=== PATIENT | female | born 1945 | race Caucasian/White ===

== ENCOUNTER 2021-08-04 19:18 | Inpatient (IN) | payer MEDICARE, BC, SELFPAY ==
--- NOTE | 2021-08-04 19:22 | ECG_ITS ---
[facility] Test Date: 2021-08-04 Pat Name: Marilou Leiva Department: Room: 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: : 1945 Requested By: Wendi Bernardo Order Number: [id number] Reading MD: ERICH FREEMAN Measurements Intervals [place] Rate: 64 P: PA: QRS: 52 QRSD: 100 T: 59 QT: 410 QTc: 425 Interpretive Statements ATRIAL FIBRILLATION INCOMPLETE RIGHT BUNDLE BRANCH BLOCK [90+ ms QRS DURATION, TERMINAL R IN V1/V2, 40+ ms S IN I/aVL/V4/V5/V6] NONSPECIFIC ST & T-WAVE ABNORMALITY ABNORMAL RHYTHM ECG No previous ECG available for comparison Electronically Signed On 08-05-2021 21:57:38 CDT by ERICH FREEMAN [email or web address]/store/NU/[id number] f
[2021-08-04 19:26] VITALS: BP 182/83; PULSE 64; RESP 16; TEMP 36.6; O2SAT 99; BMI 33.4
--- NOTE | 2021-08-04 20:32 | W.ED.CHESTPA ---
HPI - Chest Pain General: Chief Complaint: Chest Pain Stated Complaint: Chest Pains\Weakness Time Seen by Provider: 08/04/21 20:32 History of Present Illness: HPI narrative: Ms. Leiva is a 75-year-old lady with significant past medical history of high cholesterol and hemolytic anemia who presents emergency department due to chest discomfort. She reports a few week history of gradual onset now moderate intensity shortness of breath and fatigue. There is no specific preceding event. No typical infectious symptoms associated with it. During exertion today she noticed pressure in the middle of the chest without significant radiation. She felt flushed at that time and generalized malaise however no other typical cardiac chest pain features. This lasted approximately 30 minutes and resolved with rest. Intensity was moderate. Denies frequent history of similar. No other specific exacerbating relieving factors identified. She has been told that she is had an irregular heart rate, is not on blood thinners, previous evaluation was greater than 4 years ago approximately. 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 Recommended to have yearly CBC, retic, LDH, CMP Depression 1 para 1 History of stress test (11/2018) normal myocardia perfusion imaging, EF 66% Hyperlipidemia Surgical History (Updated 08/05/21 @ 02:01 by Aleida Zhao MD) History of tubal ligation Family History (Updated 08/05/21 @ 02:01 by Aleida Zhao MD) Father CAD (coronary artery disease) Social History (Updated 08/05/21 @ 02:02 by Aleida Zhao MD) Smoking and tobacco status: never smoked Alcohol intake: never Lives independently: Yes Household members: spouse Marital status: Number of children: 1 Physical Exam Narrative: EXAM NARRATIVE: GENERAL/CONSTITUTIONAL - well-appearing. No acute distress. Eyes - PERRL, no conjunctival injection ENMT - Atraumatic external nose and ears. Moist mucous membranes NECK - supple. trachea midline CARDIOVASCULAR -irregular rhythm and regular rate. Peripheral pulses intact. Chest pain not reproducible with physical exam. RESPIRATORY -clear to auscultation bilaterally. ABDOMEN/GI - Nontender/Nondistended. No tenderness to percussion or evidence of peritonitis MSK - Extremities without obvious deformity or tenderness to palpation SKIN - Warm, Dry NEURO - alert and appropriately oriented. strength and sensation intact. Moves all extremities equally. PSYCH - Appropriate mood and affect Course ED course: - Patient was seen and evaluated by me at bedside - Patient placed on cardiac monitors, IV access obtained - Initial evaluation notable for no acute distress, nontoxic appearance. - Labs notable for mild leukocytosis, macrocytic anemia. Troponin elevated with elevated delta troponin. Aspirin and Lovenox ordered - Imaging notable for no lobar consolidation or pneumothorax - Upon serial reexamination after treatment the patient was similar without recurrence of chest pain - Based on patient history, evaluation, labs, and imaging as interpreted the most likely cause of the patient's condition is NSTEMI, atrial fibrillation not on anticoagulation - The results of ED evaluation were discussed with the patient including plan for admission due to requirement for level of care not available if discharged to prevent significant worsening/deterioration. -Hospitalist service contacted and agreed admit the patient - Patient was admitted without further deterioration or significant events. Vital Signs: Vital signs: Vital Signs Temperature 98.7 F 08/07/21 12:59 Pulse Rate 80 08/07/21 14:00 Respiratory Rate 32 H 08/07/21 14:00 Blood Pressure 152/68 08/07/21 14:00 Pulse Oximetry 96 08/07/21 14:00 MDM - Chest Pain Medical Records: Attestation: I reviewed the patient's medical records. Lab Data: Attestation: I reviewed the patient's lab results. Labs: Lab Results 08/04/21 08/04/21 08/04/21 21:16 21:16 21:16 WBC 12.2 10^3/uL H 10 ^3/uL (4.0-10.0) RBC 3.58 10^6/uL L 10 ^6/uL (4.1-5.3) Hgb 10.7 g/dL L g/dL (11.5-15.3) Hct 35.7 % L % (37.0-47.0) MCV 99.7 fl H fl (81-99) MCH 29.9 pg pg (28.0-34.0) MCHC 30.0 g/dL g/dL (30.0-36.0) RDW 15.4 % H % (12.1-15.1) Plt Count 171 10^3/cmm 10^3 /cmm (130-400) MPV 11.0 fL H fL (7.4-10.4) Neut % (Auto) 67.7 % % Lymph % (Auto) 24.3 % % [place] % (Auto) 5.1 % % Eos % (Auto) 1.4 % % Baso % (Auto) 0.9 % % Neut # (Auto) 8.28 10^3/uL H 10 ^3/uL (1.8-7.7) Lymph # (Auto) 3.0 10^3/uL 10^3/ uL (0.8-4.8) [place] # (Auto) 0.6 10^3/uL 10^3/ uL (0.2-0.9) Eos # (Auto) 0.2 10^3/uL 10^3/ uL (0.0-0.8) Baso # (Auto) 0.1 10^3/uL 10^3/ uL (0.0-0.1) Nucleated RBC % (a uto) 0 % % Nucleated RBCs # 0.0 /100WBC /100W BC Sodium 142 mmol/L mmol/L (136-145) Potassium 3.8 mmol/L mmol/L (3.5-5.1) Chloride 106 mmol/L mmol/L (98-107) Carbon Dioxide 25 mmol/L mmol/L (22-29) Anion Gap 14.8 (5-19) BUN 16 mg/dL mg/dL (8-23) Creatinine 0.7 mg/dL mg/dL (0.5-0.9) GFR Calculation Not Reportable Glucose 99 mg/dL mg/dL (65-115) Calculated Osmolal ity 295 mOsm/kg mOsm/ kg (285-295) Calcium 8.9 mg/dL mg/dL (8.5-10.5) Total Bilirubin 0.6 mg/dL mg/dL (0.15-1.2) AST 18 U/L U/L (0-32) ALT 13 U/L U/L (0-33) Alkaline Phosphata se 131 IU/L H IU/L (35-105) Troponin T Baselin e 106 ng/L H* ng/L (0-10) Troponin T 120 Min [place] Delta Troponin T Total Protein 5.7 g/dL L g/dL (6.6-8.7) Albumin 4.0 g/dL g/dL (3.5-5.2) Globulin 1.7 g/dL g/dL (1.3-4.6) TSH 4.65 uIU/mL H uIU /mL (0.27-4.20) Free T4 08/04/21 08/04/21 21:16 22:44 WBC RBC Hgb Hct MCV MCH MCHC RDW Plt Count MPV Neut % (Auto) Lymph % (Auto) [place] % (Auto) Eos % (Auto) Baso % (Auto) Neut # (Auto) Lymph # (Auto) [place] # (Auto) Eos # (Auto) Baso # (Auto) Nucleated RBC % (a uto) Nucleated RBCs # Sodium Potassium Chloride Carbon Dioxide Anion Gap BUN Creatinine GFR Calculation Glucose Calculated Osmolal ity Calcium Total Bilirubin AST ALT Alkaline Phosphata se Troponin T Baselin e Troponin T 120 Min [place] 169.9 ng/L H ng/L (0-10) Delta Troponin T 63.9 ABS# H* ABS# (0-10) Total Protein Albumin Globulin TSH Free T4 1.00 ng/dL ng/dL (0.82-1.77) EKG Data^: EKG 1: Attestation: I personally reviewed and interpreted this EKG as follows: EKG interpretation date: 08/04/21 EKG interpretation time: 19:28 Interpretation: Twelve-lead EKG shows an irregular rhythm at a rate of 64. No DC interval, QRS duration 100, QTc 425. Normal axis. Interpretation: Atrial fibrillation. EKG 2: Attestation: I personally reviewed and interpreted this EKG as follows: EKG interpretation date: 08/04/21 EKG interpretation time: 21:41 Interpretation: Twelve-lead EKG shows an irregular rhythm at a rate of 68. No DC interval, QRS duration 110, QTc 445. Normal axis. Interpretation: Atrial fibrillation Discharge Plan Discharge Patient Disposition: Placed in Observation Admit Provider: Aleida Zhao Discharge Diet: Cardiac Discharge Activity: Increase activity as tolerated Coding Level of Care Code ED Solar Sales Energy Advisor for Tiera Merino
--- NOTE | 2021-08-04 20:42 | XRR_ITS ---
PROCEDURE INFORMATION: Exam: XR Chest Exam date and time: 08/04/2021 8:42 PM Age: 75 years old Clinical indication: Pain; Chest pressure; Additional info: Chest pain TECHNIQUE: Imaging protocol: XR of the chest. Views: 1 view. Total images: 1 COMPARISON: No relevant prior studies available. FINDINGS: Lungs: No visible active interstitial or alveolar airspace disease. Pleural spaces: Unremarkable. No pleural effusion. No pneumothorax. Heart/Mediastinum: Cardiac structures and configuration within normal limits. Bones/joints: Unremarkable. XR/XR chest 1V portable [id number] IMPRESSION: Nonacute. Radiation Dose CTDIVOL = (mGy): DLP = (mGy-cm)
[2021-08-04] MEDS: aspirin 81 mg Chew Tablet 324 MG PO (20:51)
[2021-08-04 21:22] LABS: Basophils # 0.1 10^3/uL (0.0-0.1); Basophils % 0.9 %; Eosinophils # 0.2 10^3/uL (0.0-0.8); Eosinophils % 1.4 %; Hematocrit 35.7 % (37.0-47.0); Hemoglobin 10.7 g/dL (11.5-15.3); Lymphocytes % 24.3 %; Mean Corpuscular Hemoglobin 29.9 pg (28.0-34.0); Mean Corpuscular Volume 99.7 fl (81-99); Monocytes # 0.6 10^3/uL (0.2-0.9); Monocytes % 5.1 %; Neutrophils # 8.28 10^3/uL (1.8-7.7); Neutrophils % 67.7 %; Nucleated Red Blood Cells % 0 %; Platelet Count 171 10^3/cmm (130-400); Red Blood Count 3.58 10^6/uL (4.1-5.3); Red Cell Distribution Width 15.4 % (12.1-15.1); White Blood Count 12.2 10^3/uL (4.0-10.0)
--- NOTE | 2021-08-04 21:22 | ECG_ITS ---
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 Pharmaceuticalsselect medical [facility]vel[facility].Sanera/store/OM/[id number]
[2021-08-04 21:46] LABS: Troponin(5th) Baseline 106 ng/L (0-10)
[2021-08-04 21:47] LABS: Alanine Aminotransferase 13 U/L (0-33); Alkaline Phosphatase 131 IU/L (35-105); Anion Gap 14.8 (5-19); Aspartate Amino Transferase 18 U/L (0-32); Blood Urea Nitrogen 16 mg/dL (8-23); Calcium 8.9 mg/dL (8.5-10.5); Carbon Dioxide 25 mmol/L (22-29); Chloride 106 mmol/L (98-107); Creatinine Clr Calc Pharmacy 77.3729; Globulin 1.7 g/dL (1.3-4.6); Glucose 99 mg/dL (65-115); Osmolality Calculated 295 mOsm/kg (285-295); Potassium 3.8 mmol/L (3.5-5.1); Sodium 142 mmol/L (136-145); Thyroid Stimulating Hormone 4.65 uIU/mL (0.27-4.20); Total Bilirubin 0.6 mg/dL (0.15-1.2); Total Protein 5.7 g/dL (6.6-8.7)
[2021-08-04] MEDS: enoxaparin 100 mg/mL Syringe SUBCUT (23:16)
[2021-08-04 23:26] LABS: Troponin 5 2HR 169.9 ng/L (0-10); Troponin 5 2HR Delta 63.9 ABS# (0-10)
[2021-08-04 23:45] VITALS: BP 210/93; PULSE 70; RESP 18; O2SAT 99
--- NOTE | 2021-08-04 23:45 | PC.NURSE ---
PT CONTINUES TO DENY PAIN, RESPIRATIONS EVEN,NON-LABORED. DENIES N/V. SKIN P/W/D.
[2021-08-04] MEDS: hyDRALAzine 20 mg/mL INJ 1 mL 10 MG IVP (23:49)
[2021-08-05] VITALS (174 sets, daily range): BP systolic 112–210; BP diastolic 49–102; PULSE 52–84; RESP 8–34; TEMP 36.3–37.1; O2SAT 92–99
--- NOTE | 2021-08-05 01:22 | ECG_ITS ---
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: : 1945 Requested By: Wendi Bernardo Order Number: [id number] Reading MD: ERICH FREEMAN Measurements Intervals [place] Rate: 62 P: 58 [place]: 131 QRS: 33 QRSD: 106 T: 42 QT: 453 QTc: 462 Interpretive Statements SINUS RHYTHM WITH OCCASIONAL VENTRICULAR PREMATURE COMPLEXES INCOMPLETE RIGHT BUNDLE BRANCH BLOCK [90+ ms QRS DURATION, TERMINAL R IN V1/V2, 40+ ms S IN I/aVL/V4/V5/V6] Compared to ECG 08/04/2021 21:34:00 Ventricular premature complex(es) now present ST (T wave) deviation no longer present Electronically Signed On 08-05-2021 21:59:33 CDT by ERICH FREEMAN [email or web address] Environment EngineeringHeartscapeeast oh[facility] regional hospital.Andela/store/OM/[id number]
--- NOTE | 2021-08-05 01:27 | P.HP_ITS ---
Providers/Chief Complaint Admitting Physician: Aleida Zhao MD Primary Care Provider: Has been Lukas Caldwell, in the process of transitioning to Dr. Anthony Chief Complaint: Chest Pains\Weakness History of Present Illness Marilou Leiav is a 75 year old female who presented to the emergency room with chief complaint of chest pain. Over the last few weeks she has been excessively tired and progressively more short of breath with exertion. She has had episodes of some diaphoresis associated with it and intermittent mild chest pain. She had scheduled an appointment to see Dr. Anthony this coming Thursday to get her blood work checked. She has a history of autoimmune hemolytic anemia for which she is on chronic folate therapy and thought that her blood counts might be low. Today she had a couple of episodes of which there was a hurting or a pressure in the center of her chest. There was no radiation. Associated with shortness of breath and mild diaphoresis and lasted more than 30 minutes. It improved with rest. It was severe enough that prompted the visit to the emergency room. In the emergency room she was noted to have blood pressure 182/83 and a pulse of 64. Twelve-lead EKG showed nonspecific ST depression and also demonstrated atrial fibrillation. Initial troponin was 100. 2-hour delta was 60. She has remained chest pain-free at rest. She is being admitted for further evaluation and treatment. Review of Systems Const: Reports: fatigue and malaise; Denies: fever(s), chills or change in weight ENMT: Denies: nasal congestion Card: Reports: chest pain, palpitations, swelling of feet/ankles (Occasionall y) and dyspnea on exertion; Denies: orthopnea Resp: Denies: productive cough, non-productive cough or pain on inspiration GI: Denies: abdominal pain, nausea, vomiting, hematochezia or melena : Denies: difficulty voiding or hematuria Musc: Denies: extremity pain Skin/Breast: Denies: sores Neuro: Denies: headache(s), weakness in extremities, sensory changes or dizziness Psych: Reports: depression Chad/Lymph: Denies: easy bruising or easy bleeding Medications/Allergies Home Medications Medication Instructions Recorded Confirmed Last Taken Type aspirin 81 mg PO DAILY 08/05/21 08/05/21 08/04/21 History fluoxetine 20 mg PO DAILY 08/05/21 08/05/21 08/04/21 History folic acid 1 mg PO DAILY 08/05/21 08/05/21 08/04/21 History lovastatin 20 mg PO DAILY 08/05/21 08/05/21 08/03/21 History magnesium citrate 100 mg PO DAILY 08/05/21 08/05/21 08/04/21 History vitamins A,C,Y-dxux-aggkur [Eye 1 tab PO DAILY 08/05/21 08/05/21 08/04/21 History Multivitamin] Allergies Allergy/AdvReac Type Severity Reaction Status Date / Time Tetracyclines Allergy Unknown Verified 08/04/21 19:30 PFSH Acute PFSH: Medical History (Updated 08/05/21 @ 02:04 by Aleida Zhao MD) Arrhythmia (~2011) Paroxysmal, likely atrial fibrillation, identified on eval for possible kidney donor, then not captured again, not been on rate control agents, other treatment or anticoagulation 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 Recommended to have yearly CBC, retic, LDH, CMP Depression 1 para 1 History of stress test (11/2018) normal myocardia perfusion imaging, EF 66% Hyperlipidemia Surgical History (Updated 08/05/21 @ 02:01 by Aleida Zhao MD) History of tubal ligation Family History (Updated 08/05/21 @ 02:01 by Aleida Zhao MD) Father CAD (coronary artery disease) Social History (Updated 08/05/21 @ 02:02 by Aleida Zhao MD) Smoking and tobacco status: never smoked Alcohol intake: never Substance/Drug Use: never Lives independently: Yes Household members: spouse Marital status: Number of children: 1 Vitals/I&O/Wt Last Vital Signs Temp 97.8 F 08/04/21 19:26 Pulse 69 08/05/21 00:30 Resp 18 08/05/21 00:30 BP 149/99 08/05/21 00:30 Pulse Ox 99 08/05/21 00:30 Weight last 48 hrs Weight 99.79 kg Physical Exam Narrative: EXAM NARRATIVE: Constitutional: Awake and alert, cooperative HEENT: Normocephalic, atraumatic, pupils are equally reactive, nasopharynx is clear, oropharynx with moist mucous membranes Neck: Supple Respiratory: Clear to auscultation bilaterally without any rales or wheezes noted Cardiovascular: Irregularly irregular rhythm without any murmurs gallops or rubs Abdomen: Soft, nontender, nondistended with positive bowel sounds : Deferred Extremities: No pitting edema or acute synovitis Skin: Dry, no acute rashes or bruises noted Neuro: Speech clear, face symmetric, moves all extremities Psych: Normal affect, oriented x3 Data : 08/04/21 21:16 08/04/21 21:16 Other Labs: Laboratory Results WBC 12.2 10^3/uL (4.0-10.0) H 08/04/21 21:16 RBC 3.58 10^6/uL (4.1-5.3) L 08/04/21 21:16 Hgb 10.7 g/dL (11.5-15.3) L 08/04/21 21:16 Hct 35.7 % (37.0-47.0) L 08/04/21 21:16 MCV 99.7 fl (81-99) H 08/04/21 21:16 MCH 29.9 pg (28.0-34.0) 08/04/21 21:16 MCHC 30.0 g/dL (30.0-36.0) 08/04/21 21:16 RDW 15.4 % (12.1-15.1) H 08/04/21 21:16 Plt Count 171 10^3/cmm (130-400) 08/04/21 21:16 MPV 11.0 fL (7.4-10.4) H 08/04/21 21:16 Neut % (Auto) 67.7 % 08/04/21 21:16 Lymph % (Auto) 24.3 % 08/04/21 21:16 [place] % (Auto) 5.1 % 08/04/21 21:16 Eos % (Auto) 1.4 % 08/04/21 21:16 Baso % (Auto) 0.9 % 08/04/21 21:16 Neut # (Auto) 8.28 10^3/uL (1.8-7.7) H 08/04/21 21:16 Lymph # (Auto) 3.0 10^3/uL (0.8-4.8) 08/04/21 21:16 [place] # (Auto) 0.6 10^3/uL (0.2-0.9) 08/04/21 21:16 Eos # (Auto) 0.2 10^3/uL (0.0-0.8) 08/04/21 21:16 Baso # (Auto) 0.1 10^3/uL (0.0-0.1) 08/04/21 21:16 Nucleated RBC % (auto) 0 % 08/04/21 21:16 Nucleated RBCs # 0.0 /100WBC 08/04/21 21:16 Sodium 142 mmol/L (136-145) 08/04/21 21:16 Potassium 3.8 mmol/L (3.5-5.1) 08/04/21 21:16 Chloride 106 mmol/L (98-107) 08/04/21 21:16 Carbon Dioxide 25 mmol/L (22-29) 08/04/21 21:16 Anion Gap 14.8 (5-19) 08/04/21 21:16 BUN 16 mg/dL (8-23) 08/04/21 21:16 Creatinine 0.7 mg/dL (0.5-0.9) 08/04/21 21:16 GFR Calculation Not Reportable 08/04/21 21:16 Glucose 99 mg/dL (65-115) 08/04/21 21:16 Calculated Osmolality 295 mOsm/kg (285-295) 08/04/21 21:16 Calcium 8.9 mg/dL (8.5-10.5) 08/04/21 21:16 Total Bilirubin 0.6 mg/dL (0.15-1.2) 08/04/21 21:16 AST 18 U/L (0-32) 08/04/21 21:16 ALT 13 U/L (0-33) 08/04/21 21:16 Alkaline Phosphatase 131 IU/L (35-105) H 08/04/21 21:16 Troponin T Baseline 106 ng/L (0-10) H* 08/04/21 21:16 Troponin T 120 Minute 169.9 ng/L (0-10) H 08/04/21 22:44 Delta Troponin T 63.9 ABS# (0-10) H* 08/04/21 22:44 Total Protein 5.7 g/dL (6.6-8.7) L 08/04/21 21:16 Albumin 4.0 g/dL (3.5-5.2) 08/04/21 21:16 Globulin 1.7 g/dL (1.3-4.6) 08/04/21 21:16 TSH 4.65 uIU/mL (0.27-4.20) H 08/04/21 21:16 Free T4 1.00 ng/dL (0.82-1.77) 08/04/21 21:16 Impressions Chest X-Ray 08/04/21 20:42 IMPRESSION: Nonacute. Radiation Dose CTDIVOL = (mGy): DLP = (mGy-cm) A&P Assessment and plan (1) NSTEMI (non-ST elevated myocardial infarction): With somewhat classic symptoms of unstable angina over the last couple of weeks as described Status: Acute (2) Hypertension: With hypertensive urgency presently, no prior history of hypertension Status: Acute (3) Atrial fibrillation: Sounds like she has had an arrhythmia identified in the past, likely atrial fibrillation but upon follow-up with physicians after it was identified she had sinus rhythm. Review of records here demonstrates sinus rhythm when she had stress test although was having frequent PACs. She has never been any specific treatment for atrial fibrillation nor on any anticoagulation. Status: Acute (4) Hyperlipidemia: Type unknown, chronically on statin therapy Status: Chronic (5) Autoimmune hemolytic anemia: This was identified during an evaluation to see if she could be a kidney donor for her . She has Joseluis positive warm reacting IgG antibody associated with mild anemia. She is chronically on folate supplementation. Has seen Dr. De La Cruz in the past Status: Chronic (6) Depression: Chronically on fluoxetine, currently well controlled Status: Chronic Additional A&P Information Inpatient admission Continue serial cardiac enzymes Status post 1 dose of Lovenox, will continue but need to monitor response Aspirin, statin, Plavix, beta-blockade Nitropaste presently, will consider nitroglycerin drip if pressures do not respond to treatment Check lipid panel and BNP Echocardiogram Cardiology consultation Check reticulocyte, coagulation studies and LDH as well as repeat CBC If evidence of increased hemolysis, will eval for steroids or other treatment op tions Can discuss with hematology later today to facilitate management in setting of NSTEMI and afib and potential need for anti-platelet as well as anticoagulant treatment PPI for GI prophylaxis SCDs for DVT prophylaxis N.p.o. for possible intervention later today Low volume IV fluids while n.p.o. Supportive care otherwise Plans, findings and concerns discussed with patient and she was given an o pportunity to ask questions Anticipate discharge home once medically stable with outpatient cardiology plus or minus hematology follow-up Full code Attestations Medical Necessity Statement*: Anticipated stay greater than 2 midnights in a patient with unstable angina non-ST elevation IA along with known autoimmune hemolytic anemia. At high risk of rapid clinical decline without close monitoring and initiation of treatment plus possible intervention. Plans are as indicated. Coding Level of Care Code Acute Finishing Technician for zeyad Guerrad Diagnoses NSTEMI (non-ST elevated myocardial infarction) I21.4 Hypertension I10 Atrial fibrillation I48.91 Hyperlipidemia E78.5 Autoimmune hemolytic anemia D59.10 Depression F32.A
[2021-08-05] MEDS: sodium chlor 0.45% +KCl 20 mEq 20 MEQ/1,000 ML BAG 75 MEQ IV (01:48)
[2021-08-05] MEDS: atorvastatin 40 mg Tablet PO ×2 (01:48→20:07)
[2021-08-05] MEDS: metoprolol tartrate 1 mg/1 mL SDV 5 mL 5 MG IVP (01:48)
[2021-08-05] MEDS: nitroglycerin 1 gm/inch oint Pkt 1 INCH TOPICAL (01:48)
--- NOTE | 2021-08-05 02:04 | USCV_ITS ---
Marilou Leiva Age: 75 Gender: F : 1945 Exam Date: 08/05/2021 06:43 Ordering Phys: Aleida Zhao MD Technologist: Exam Location: [facility] [place] Indication: NSTEMI BP: 163 / 72 HR: 61 Rhythm: Sinus Technical Quality: Adequate MEASUREMENTS (Male / Female) Normal Values 2D ECHO LV Diastolic Diameter PLAX 5.1 cm 4.2 - 5.9 / 3.9 - 5.3 cm LV Systolic Diameter PLAX 3.1 cm IVS Diastolic Thickness 1.2 cm 0.6 - 1.0 / 0.6 - 0.9 cm IVS Systolic Thickness 2.0 cm LVPW Diastolic Thickness 1.2 cm 0.6 - 1.0 / 0.6 - 0.9 cm LVPW Systolic Thickness 1.5 cm LVOT Diameter 2.0 cm LV Ejection Fraction 2D Teich 69.6 % LV Ejection Fraction MOD 2C 56.9 % LV Ejection Fraction 2C AL 57.1 % LA Diameter 3.7 cm LA Width 3.5 cm LA Height 5.7 cm RA Width 3.4 cm RA Height 4.9 cm Aorta at Sinotubular Diameter 2.9 cm DOPPLER AV Peak Velocity 119.0 cm/s LVOT Peak Velocity 96.0 cm/s AV Area Cont Eq vti 2.3 cm squared AV Area Cont Eq pk 2.5 cm squared MV Area PHT 5.0 cm squared Mitral E to A Ratio 1.3 MV E' Velocity 54.5 cm/s Mitral E to MV E' Ratio 9.2 Mitral E to LV E' Lateral Ratio 9.5 Mitral E to LV E' Septal Ratio 9.0 TR Peak Velocity 286.0 cm/s TR Peak Gradient 32.7 mmHg TV Peak E Velocity 91.0 cm/s Right Atrial Pressure 3.0 mmHg Pulmonary Artery Systolic Pressu 35.7 mmHg FINDINGS Left Ventricle Normal left ventricular size, systolic function and mildly increased wall thickness, with no regional wall motion abnormalities. Left ventricular ejection fraction is estimated at 60-65 %. Normal diastolic function. Right Ventricle Normal right ventricular size and systolic function. Right ventricular systolic pressure 35.7 mmHg. Right Atrium Normal right atrial size. Right atrial pressure estimated at 3 mmHg. Left Atrium Normal left atrial size. Mitral Valve Structurally normal mitral valve. No mitral valve stenosis. Trace mitral valve regurgitation. Aortic Valve Structurally normal trileaflet aortic valve. No aortic valve stenosis. No aortic valve regurgitation. Tricuspid Valve Structurally normal tricuspid valve. Bmgv-do-lvczodmo tricuspid valve regurgitation. Pulmonic Valve Structurally normal pulmonic valve. No pulmonary valve stenosis. No pulmonary valve regurgitation. Pericardium No pericardial effusion. Aorta Normal-sized inferior vena cava. Normal-sized aortic root. CONCLUSIONS 1. Normal left ventricular size, systolic function and mildly increased wall thickness, with no regional wall motion abnormalities. Left ventricular ejection fraction is estimated at 60-65 %. Normal diastolic function. 2. Normal right ventricular size and systolic function. 3. Mild pulmonary hypertension with pulmonary artery pressure estimated at 36 mmHg. 4. Wksu-vq-xoagajrl tricuspid valve regurgitation. 5. No prior similar studies to compare. Jacqueline Alcantara MD (Electronically Signed) Final Date: 05 August 2021 14:42 S
[2021-08-05] MEDS: nitroglycerin drip 50 MG/250 ML PREMIX IV (02:21)
--- NOTE | 2021-08-05 02:32 | PC.NURSE ---
Patients BP continues to remain elevated above [address] Zhao on unit and gave orders to discontinue the nitro paste and start a nitro drip. Continue care.
[2021-08-05 03:37] LABS: Basophils # 0.1 10^3/uL (0.0-0.1); Eosinophils # 0.1 10^3/uL (0.0-0.8); Eosinophils % 1.2 %; Hematocrit 37.1 % (37.0-47.0); Hemoglobin 10.9 g/dL (11.5-15.3); Lymphocytes # 2.7 10^3/uL (0.8-4.8); Lymphocytes % 25.2 %; Mean Corpuscular HGB Conc 29.4 g/dL (30.0-36.0); Mean Corpuscular Hemoglobin 29.8 pg (28.0-34.0); Mean Corpuscular Volume 101.4 fl (81-99); Mean Platelet Volume 11.2 fL (7.4-10.4); Monocytes # 0.5 10^3/uL (0.2-0.9); Monocytes % 5.1 %; Neutrophils # 7.07 10^3/uL (1.8-7.7); Nucleated Red Blood Cells % 0 %; Platelet Count 159 10^3/cmm (130-400); Red Blood Count 3.66 10^6/uL (4.1-5.3); Red Cell Distribution Width 15.3 % (12.1-15.1); Reticulocyte % 5.9 % (0.5-2.0); White Blood Count 10.6 10^3/uL (4.0-10.0)
[2021-08-05 03:56] LABS: INR 1.05 (0.8-1.2)
[2021-08-05 03:57] LABS: Partial Thromboplastin Time 32.5 SECONDS (23.9-36.7); Troponin 5 6HR 155.5 ng/L (0-10); Troponin 5 6HR Delta 49.5 ng/L (0-12)
[2021-08-05 04:29] LABS: Anion Gap 15.5 (5-19); Blood Urea Nitrogen 14 mg/dL (8-23); Carbon Dioxide 24 mmol/L (22-29); Chloride 106 mmol/L (98-107); Cholesterol 177 mg/dL (0-200); Creatinine Clr Calc Pharmacy 77.3729; Glucose 99 mg/dL (65-115); HDL Cholesterol 61 mg/dL (60-100); LDL Cholesterol Calculated 103 mg/dL (50-129); LDL HDL Ratio 1.69 RATIO (0.00-3.22); Lactate Dehydrogenase 268 U/L (135-214); NT Pro B Type Natriuretic Pept 757 pg/mL (0-125); Osmolality Calculated 295 mOsm/kg (285-295); Potassium 3.5 mmol/L (3.5-5.1); Sodium 142 mmol/L (136-145); Triglycerides 67 mg/dL (0-150)
--- NOTE | 2021-08-05 06:09 | PC.NURSE ---
Shift Note Frequent safety and comfort rounds continue. Pt had to be started on a nitroglycerin drip due to SBP>200. Dr. Zhao wants systolic pressure between 140-150. No pain reported from patient. Orders and nursing care completed as indicated. Patient monitored for response to intervention and treatment. Education provided includes use of nitroglycerin. Patient verbalized understanding. Will continue care.
--- NOTE | 2021-08-05 07:56 | PC.NURSE ---
Shift Note Frequent safety and comfort rounds continue. Orders and/or nursing care completed as indicated. Patient monitored for response to intervention and treatment(s). Education provided includes[blood pressure monitoring, nitroglycerin gtt, chest pain with pain management.]. Patient and/or customer development representative [pt verbally states she understands]. Will continue to monitor. Received bed side shift report from off going nurse. Pt's plan of care reviewed. Pt is alert and oriented and able to make her own decisions. Respirations are even and unlabored. No s/sx of distress noted. Pt denies any pains or concerns at this time. Pt stated that her own complaint is that she wasnt able to get any sleep through the night. Bed in lowest and locked position, call light within reach, x's 2 rails up. Will continue to monitor.
--- NOTE | 2021-08-05 07:58 | PM.PN ---
Subjective Subjective: Interval history: Marilou reports she has no chest discomfort this morning. History and physical was reviewed. Medications: Reviewed: Yes Vitals/I&O/Wt Last Vital Signs Temp 98.0 F 08/05/21 04:00 Pulse 66 08/05/21 06:00 Resp 16 08/05/21 06:00 BP 145/68 08/05/21 06:00 Pulse Ox 96 08/05/21 06:00 08/04/21 08/05/21 08/05/21 22:59 06:59 14:59 Intake Total 3.35 / 3.35 Balance 3.35 / 3.35 Weight last 48 hrs Weight 99.79 kg Physical Exam Narrative: EXAM NARRATIVE: General exam no apparent distress Neck is supple Cardiovascular regular rate and rhythm without murmur Lungs clear Abdomen is soft with positive bowel sounds Extremities no cyanosis clubbing or edema Data : 08/05/21 03:10 08/05/21 03:10 A&P Assessment and plan (1) NSTEMI (non-ST elevated myocardial infarction): Significant troponin delta Beta-kaya, statin, aspirin, nitrates, full dose anticoagulation, Plavix Cardiology consultation Echocardiogram ordered, result pending Status: Acute (2) Hypertension: With hypertensive urgency on admission, now improved Status: Acute (3) Atrial fibrillation: Sounds like she has had an arrhythmia identified in the past, likely atrial fibrillation but upon follow-up with physicians after it was identified she had sinus rhythm. Review of records here demonstrates sinus rhythm when she had stress test although was having frequent PACs. She has never been any specific treatment for atrial fibrillation nor on any anticoagulation. Repeat EKG, may be sinus rhythm currently. 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 She has Joseluis positive warm reacting IgG antibody associated with mild anemia. She is chronically on folate supplementation. Has seen Dr. De La Cruz in the past Continue to follow CBCs closely Status: Chronic (6) Depression: Continue fluoxetine Status: Chronic Additional A&P Information Protonix for GI prophylaxis Lovenox will suffice for DVT prophylaxis Attestations Medical Necessity Statement*: Needs continued hospitalization for cardiac evaluation secondary to non-ST elevation myocardial infarction. Coding Level of Care Code Acute Broadcast Operations Director for Chg Fwd Diagnoses NSTEMI (non-ST elevated myocardial infarction) I21.4 Hypertension I10 Atrial fibrillation I48.91 Hyperlipidemia E78.5 Autoimmune hemolytic anemia D59.10 Depression F32.A
[2021-08-05] MEDS: aspirin 81 mg EC Tablet PO (08:33)
[2021-08-05] MEDS: metoprolol tartrate 25 mg Tablet PO ×2 (08:33→20:07)
[2021-08-05] MEDS: fluoxetine 20 mg Capsule PO (08:33)
[2021-08-05] MEDS: folic acid 1 mg Tablet PO (08:33)
[2021-08-05] MEDS: clopidogrel 75 mg Tablet PO (08:34)
[2021-08-05] MEDS: pantoprazole DR 40 mg Tablet PO (08:34)
--- NOTE | 2021-08-05 09:10 | PC.CHAP ---
Pastoral Care Encounter/Spiritual Assessment Type of Contact [] Declined color strainer visit [] Patient/Family/Request visit [] Outpatient visit [] Follow-up visit [] Physician referral [] Code/Alert [x] Routine visit [] Staff referral [] Actively dying [] Patient sleeping [x] Family support [] [] Out of room [] Palliative care [] [x] Receiving care in room [] Pre-surgical visit [] Trauma [] Long length of stay [x] ICU visit [] Other: Relational/Emotional Strength [] Patient feels connected with others/family/visitors/staff [] Distress [] Loneliness/isolation [] Abandonment Spirituality of Patient [] Person of Larissa [] Attends Religion of their Larissa [] Believes in Prayer [] Reads Bible or Catholic materials [] There are Spiritual issues to be addressed Package Delivery Driver Interventions [x] Prayer [] Active listening [] Non-anxious presence [] Spiritual/emotional support [] Crisis/trauma care [] Spiritual counseling [] Bereavement support [] Provided bereavement packet [] Provided Bible/devotional materials [] Provided toy/stuffed animal, coloring book to patient or family member [] Provided Communion [] Anointing/[place] [] Salvation [x] Completed spiritual assessment [] Other: Impact on Illness or Injury [] Angry [] Fearful [] Anxious [] Often cries [] Exhaustion [] Unable to work [] Unable to attend tenriism [] Unable to walk/stand [] Unable to read [] Unable to drive [] Unable to eat/drink [] Unable to sleep [] Unable to be with family [] Patient intubated [] Other: Summary Time spent with patient
[2021-08-05] MEDS: enoxaparin 100 mg/mL Syringe SUBCUT ×2 (11:45→23:02)
--- NOTE | 2021-08-05 11:59 | PM.CONSULT ---
Providers/Reason For Consult Consulting Physician/Specialty*: Cardiology Reason for Consult*: Non-ST elevation [place] Attending Physician: Justin Randolph MD History of Present Illness History of Present Illness Marilou Leiva is a 75 year old female past medical history significant for autoimmune hemolytic anemia Joseluis positive with mild anemia hyperlipidemia family's of coronary artery disease experienced severe chest pain last night when it did not relieve after 30 to 40 minutes she decided to come to the ER. She was noted to have positive troponin she was ruled in for acute coronary syndrome. She was treated as per ACS protocol currently she is chest pain-free but admits to chest pressure at times. Blood pressure was moderately elevated she is on nitro drip she denies any PND orthopnea presyncope syncope. Patient denies any personal history of tobacco abuse or diabetes. Review of Systems Const: Reports: fatigue and malaise; Denies: fever(s), chills or change in weight ENMT: Denies: nasal congestion Card: Reports: chest pain, palpitations, swelling of feet/ankles (Occasionally) and dyspnea on exertion; Denies: orthopnea Resp: Denies: productive cough, non-productive cough or pain on inspiration GI: Denies: abdominal pain, nausea, vomiting, hematochezia or melena : Denies: difficulty voiding or hematuria Musc: Denies: extremity pain Skin/Breast: Denies: sores Neuro: Denies: headache(s), weakness in extremities, sensory changes or dizziness Psych: Reports: depression Chad/Lymph: Denies: easy bruising or easy bleeding Meds/Allergies Home Medications and Allergies Home Medications Medication Instructions Recorded Confirmed Last Taken Type aspirin 81 mg PO DAILY 08/05/21 08/05/21 08/04/21 History fluoxetine 20 mg PO DAILY 08/05/21 08/05/21 08/04/21 History folic acid 1 mg PO DAILY 08/05/21 08/05/21 08/04/21 History lovastatin 20 mg PO DAILY 08/05/21 08/05/21 08/03/21 History magnesium citrate 100 mg PO DAILY 08/05/21 08/05/21 08/04/21 History vitamins A,C,C-buhh-bukslq [Eye 1 tab PO DAILY 08/05/21 08/05/21 08/04/21 History Multivitamin] Allergies Allergy/AdvReac Type Severity Reaction Status Date / Time Tetracyclines Allergy Unknown Verified 08/04/21 19:30 Current Medications Current Medications Generic Name Dose Route Start Last Admin Trade Name Valentina PRN Reason Stop Dose Admin Aspirin 81 mg 08/05/21 09:00 08/05/21 08:33 Aspirin 81 Mg Ec Tablet PO 81 mg DAILY MAYITO Administration Atorvastatin Calcium 40 mg 08/05/21 01:20 08/05/21 01:48 Atorvastatin 40 Mg Tablet PO 40 mg BEDTIME MAYITO Administration Clopidogrel Bisulfate 75 mg 08/05/21 09:00 08/05/21 08:34 Clopidogrel 75 Mg Tablet PO 75 mg DAILY MAYITO Administration Enoxaparin Sodium 100 mg 08/05/21 11:00 08/05/21 11:45 Enoxaparin 100 Mg/Ml Syringe 1 mg/kg (100 mg) 100 mg SUBCUT Administration Q12H MAYITO Fluoxetine HCl 20 mg 08/05/21 09:00 08/05/21 08:33 Fluoxetine 20 Mg Capsule PO 20 mg DAILY MAYITO Administration Folic Acid 1 mg 08/05/21 09:00 08/05/21 08:33 Folic Acid 1 Mg Tablet PO 1 mg DAILY MAYITO Administration Potassium Chloride/Sodium Chloride 20 meq in 1,000 mls @ 75 mls/hr 08/05/21 01:30 08/05/21 01:48 Sodium Chlor 0.45% +Kcl 20 Meq IV 75 mls/hr .[id number] MAYITO Administration Nitroglycerin/Dextrose 50 mg in 250 mls @ 0 mls/hr 08/05/21 02:30 08/05/21 03:40 Nitroglycerin Drip IV 10 mcg/min .Q0M MAYITO 3 mls/hr Titration Protocol Per Protocol Metoprolol Tartrate 25 mg 08/05/21 09:00 08/05/21 08:33 Metoprolol Tartrate 25 Mg Tablet PO 25 mg BID@0900,2100 MAYITO Administration Pantoprazole Sodium 40 mg 08/05/21 09:00 08/05/21 08:[address] 40 Mg Tablet PO 40 mg DAILY MAYITO Administration PFSH Acute PFSH: Medical History (Updated 08/05/21 @ 19:36 by Aster Baez MD) Arrhythmia (~2011) Paroxysmal, likely atrial fibrillation, identified on eval for possible kidney donor, then not captured again, not been on rate control agents, other treatment or anticoagulation 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 Recommended to have yearly CBC, retic, LDH, CMP Depression 1 para 1 History of stress test (11/2018) normal myocardia perfusion imaging, EF 66% Hyperlipidemia Surgical History (Updated 08/05/21 @ 02:01 by Aleida Zhao MD) History of tubal ligation Family History (Updated 08/05/21 @ 02:01 by Aleida Zhao MD) Father CAD (coronary artery disease) Social History (Updated 08/05/21 @ 02:02 by Aleida Zhao MD) Smoking and tobacco status: never smoked Alcohol intake: never Substance/Drug Use: never Lives independently: Yes Household members: spouse Marital status: Number of children: 1 Vitals/I&O/Wt Last Vital Signs Temp 97.4 F L 08/05/21 08:00 Pulse 54 L 08/05/21 10:35 Resp 19 H 08/05/21 10:35 BP 161/68 08/05/21 10:00 Pulse Ox 95 08/05/21 10:35 08/04/21 08/05/21 08/05/21 22:59 06:59 14:59 Intake Total 3.35 / 3.35 Balance 3.35 / 3.35 Weight last 48 hrs Weight 220 lb Physical Exam Narrative: EXAM NARRATIVE: GENERAL: Patient is alert, awake and oriented x3. NECK: No jugular vein distension. HEENT: No cyanosis. No icterus. No pallor. HEART: Regular S1 and S2. No murmur, rub or gallop. LUNGS: Clear to auscultate bilaterally. ABDOMEN: Soft, nontender and nondistended. Positive bowel sounds. No guarding, rebound or tenderness. CENTRAL NERVOUS SYSTEM: Grossly nonfocal. EXTREMITIES: Lower extremities without edema bilaterally. A&P Assessment and plan (1) NSTEMI (non-ST elevated myocardial infarction): Patient presented with chest pain ruled in for acute coronary syndrome/non-ST elevation [place]. Blood pressure was moderately elevated she is on nitro drip underlying rhythm is sinus it is mentioned that she has history of A. fib but actually I have not been able to see any prior episode of A. fib proven with EKG. Patient denies any stressful situation she is not diabetic non-smoker she denies any viral-like illness. At this point would like to rule out obstructive coronary artery disease with left heart cath. Patient has been explained all risk benefit and already for the procedure she understand risk of bleeding transfusion stroke contrast-induced nephropathy leading to dialysis vascular injury urgent emergent vascular bypass surgery. She would like to proceed with it she is a candidate for DAPT. Echo cardiogram is pending Status: Acute (2) Hypertension: Not well controlled we will add lisinopril to the regimen continue metoprolol continue IV nitro Status: Acute Qualifiers: Hypertension type: primary hypertension Qualified Code(s): I10 - Essential (primary) hypertension (3) Autoimmune hemolytic anemia: Continue folic acid Status: Chronic (4) Hyperlipidemia: Continue statin Status: Chronic Qualifiers: Hyperlipidemia type: other hyperlipidemia Qualified Code(s): E78.49 - Other hyperlipidemia Consult Attestations Medical Necessity Statement: Patient require continuation hospitalization for above defined care. Coding Level of Care Code New Pt Acute Car Ferrier for [facility] Patient Type New Medical Decision Making Moderate Complexity Diagnoses NSTEMI (non-ST elevated myocardial infarction) I21.4 Hypertension I10 Hypertension type: primary hypertension Autoimmune hemolytic anemia D59.10 Hyperlipidemia E78.49 Hyperlipidemia type: other hyperlipidemia
[2021-08-05] MEDS: clopidogrel 300 mg Tablet PO (12:37)
[2021-08-05] MEDS: sodium chloride 0.9% 1,000 ML 50 ML IV (12:37)
[2021-08-05] MEDS: lisinopril 10 mg Tablet PO (16:07)
[2021-08-05] MEDS: lisinopril 5 mg Tablet PO (17:59)
[2021-08-05] MEDS: acetaminophen 325 mg Tablet 650 MG PO (17:59)
[2021-08-05] MEDS: trazodone 100 mg Tablet PO (20:07)
[2021-08-06] VITALS (51 sets, daily range): BP systolic 91–162; BP diastolic 43–79; PULSE 48–88; RESP 11–31; TEMP 36.6–36.8; O2SAT 92–100
[2021-08-06 05:06] LABS: Basophils # 0.1 10^3/uL (0.0-0.1); Basophils % 1.1 %; Eosinophils # 0.2 10^3/uL (0.0-0.8); Eosinophils % 1.6 %; Hematocrit 33.5 % (37.0-47.0); Hemoglobin 9.8 g/dL (11.5-15.3); Lymphocytes # 2.2 10^3/uL (0.8-4.8); Lymphocytes % 23.9 %; Mean Corpuscular HGB Conc 29.3 g/dL (30.0-36.0); Mean Corpuscular Hemoglobin 29.5 pg (28.0-34.0); Mean Corpuscular Volume 100.9 fl (81-99); Mean Platelet Volume 11.2 fL (7.4-10.4); Monocytes # 0.6 10^3/uL (0.2-0.9); Monocytes % 6.6 %; Neutrophils # 6.18 10^3/uL (1.8-7.7); Neutrophils % 66.4 %; Nucleated Red Blood Cells % 0 %; Platelet Count 164 10^3/cmm (130-400); Red Blood Count 3.32 10^6/uL (4.1-5.3); Red Cell Distribution Width 15.3 % (12.1-15.1); White Blood Count 9.3 10^3/uL (4.0-10.0)
[2021-08-06] MEDS: diphenhydrAMINE 50 mg Capsule PO (05:25)
[2021-08-06 05:26] LABS: Anion Gap 10.8 (5-19); Blood Urea Nitrogen 14 mg/dL (8-23); Calcium 8.4 mg/dL (8.5-10.5); Carbon Dioxide 25 mmol/L (22-29); Chloride 110 mmol/L (98-107); Creatinine Clr Calc Pharmacy 77.3729; Glucose 98 mg/dL (65-115); Magnesium 2.1 mg/dL (1.7-2.3); Osmolality Calculated 294 mOsm/kg (285-295); Phosphorus 2.8 mg/dL (2.5-4.5); Potassium 3.8 mmol/L (3.5-5.1); Sodium 142 mmol/L (136-145)
--- NOTE | 2021-08-06 05:49 | PC.NURSE ---
VSS at this time. Able to titrate off nitroglycerin overnight. Patient to go to label press operator at 0600, has been NPO since midnight, IVF started and given as ordered. Patient educated on procedure, medications. Family notified by patient, at patient request. No signs of distress at this time
--- NOTE | 2021-08-06 06:00 | XACV_ITS ---
Exam Room: [facility] Ht: 173 cm Wt: 100 kg BSA: 2.22 m2 Gender: Female : 1945 Exam Priority: Routine Procedure(s): Procedure Description: Diagnostic procedure Procedure Description: PCI procedure Procedure Description: Drug Eluting Coronary Stent Procedure Description: PTCA Procedure Description: Coronary Angiography Sasha PECK; Diagnostic Cath Status: Urgent Diagnostic Findings * Left Main has no disease. * Left Anterior Descending has no disease. * Right Coronary Artery has no disease. * Proximal Circumflex: critical 95% stenosis, WENDY: 3 flow. * Coronary angiography shows right dominance. Interventional Findings * Proximal Circumflex: 95% stenosis treated with a AB TREK 2.50X12 RX BALLOON, MDTavo Angulo MARIA DEL CARMEN 3.0X12 HANY, and MDT THOM EUPHORA RX [id number] BALLOON. 0% residual stenosis, WENDY: 3 flow. Conclusions 1. There is critical coronary artery disease with one vessel disease. 2. Proximal Circumflex was treated with a Balloon, Drug Eluting Stent, and Balloon. Recommendations * 1-Return to inpatient for close monitoring and routine cath care2-Risk factor modification for secondary prevention3-Statin and aspirin 81 mg life--long, if tolerated4-Patient was pre-loaded with 600 mg of Plavix, continue Plavix 75mg p.o. daily for at least one year. We will assess at the end of one year again to continue if further or not5-Continue optimal medical management6-Follow up with Dr. Baez in four weeks and your primary care in 10 days. Interventional RX Recommendation: PCI w/o planned CABG Diagnostic RX Recommendation: PCI w/o planned CABG Pressures Phase:Rest AO : 156 / 68 ( 101 ) @ 4:37:00 AM 112 / 47 ( 70 ) @ 4:49:00 AM 109 / 40 ( 65 ) @ 4:59:00 AM Clinical Evaluation EBL: 5mL-10mL Procedural Details Procedure Consent Obtained. Admit Source: In Patient. Pre-Procedure Time Out. Identified patient by full name and date of as verbalized by the patient/guarantor. Does the consent match the physician's order: Yes. Accurate & Complete Informed Consent: Yes. Inpatient/Outpatient History & Physical on Chart: Yes. If H&P is completed, is and addenduem needed: No; If yes, is the addendum complete: N/A. Visualize and Verify Site with Patient/Guarantor: N/A. Relevant Radiology Images available: Yes. Pre-op teaching completed and patient verbalized understanding. The risks, benefits, and alternatives of sedation and/or procedure were discussed by physician. The patient agrees to continue. Procedure started. [facility] Clinical Fraility Score: 3: Managing Well. Academic Specialist Indications: New Onset Angina. Chest Pain Symptom Assessment: Atypical Angina. Correct patient, site and procedure confirmed by cath team. Current diagnosis: Chest Pain. PERRLA. Strong, equal hand stopper maker helper bilaterally. Lungs clear x 5 lobes. IV Site on Arrival: 20 gauge in the right anticubital. Oxygen started at 2liters/min via nasal canula. Pre Procedural Pulses: right radial was 2+. Pre Procedural Pulses: bilateral dorsalis pedis was 2+. right radial was prepped with chloroprep then draped in the usual sterile fashion. right groin was prepped with chloroprep then draped in the usual sterile fashion. Physician notified. Physician arrived. Physician scrubbed in. Immediate Pre-Procedure Time Out. Correct Patient: Yes; Correct Procedure: Yes; Correct Site: Yes; Correct Patient Position: Yes; Correct Supplies: Yes; Dried Flammable Prep: Yes; Blood Products Available: n/a. Lidocaine 1% infiltrated to the right radial. Arterial access obtained. A 5 nigerien TIG catheter in over wire. Multiple views taken of left coronary artery. Catheter redirected to the RCA. Multiple views taken of right coronary artery. Catheter out. Equipment: 6F - Radial. 6 nigerien XB 3 guide catheter was inserted over the wire. [place] guidewire was advanced through the guide catheter to lesion in the Ostial Circ. Balloon inserted to lesion in the prox Circ. Inflation number : 1 A AB TREK 2.50X12 RX BALLOON was prepped and advanced across the Prox CX , then inflated to 14 JILLIAN for 0:08 seconds. Balloon out. Stent inserted to lesion in the prox Circ. Inflation Number : 2 A MDT R MARIA DEL CARMEN 3.0X12 HANY -Lot Number# [id number] exp 05/24/2024 was prepped and advanced across the Prox CX. The stent was deployed at 12 JILLIAN for 0:15 seconds. Stent balloon out over wire. Results checked. Balloon inserted to lesion in the prox Circ. Inflation number : 3 A MDT NC EUPHORA RX [id number] BALLOON was prepped and advanced across the Prox CX , then inflated to 12 JILILAN for 0:15 seconds. Inflation number: 4 The MDT NC EUPHORA RX [id number] BALLOON was reinflated across the Prox CX, to 12 JILLIAN for 0:13 seconds. Balloon and wire out. Results checked. Guide catheter out. A TR Band was successful obtaining hemostatsis at the Right Radial artery insertion site. Post Procedure: Pulses reassessed and unchanged. PERRLA. Strong, equal hand stopper maker helper bilaterally. No VTE prophylaxis required. Medication's Wasted: Lidocaine 1% = 16 mL. Medication's Wasted: Heparin = 1000 u. Medication's Wasted: Nitro = 49.8 mg. PCI Indication: NSTE. Complications: none. Estimated blood loss: 5mL-10mL. Procedure completed. Patient transferred by wheelchair to ICU. Vital chart was stopped. Access Site Site: Right Radial artery Sheath Size: 6 Fr Hemostasis Method: TR Band Hemostasis Success: Successful Procedure Medications Start: 6:23 AM Stop: 6:23 AM Medication: Versed Amount: 1 mg Route: I.V. Start: 6:23 AM Stop: 6:23 AM Medication: Fentanyl Amount: 50 mcg Route: I.V. Start: 6:31 AM Stop: 6:31 AM Medication: Nitrogylcerin Amount: 200 mcg Route: I.A. Start: 6:52 AM Stop: 6:52 AM Medication: Fentanyl Amount: 50 mcg Route: I.V. Start: 6:52 AM Stop: 6:52 AM Medication: Versed Amount: 1 mg Route: I.V. Start: 7:04 AM Stop: 7:04 AM Medication: Plavix Amount: 300 mg Route: P.O. I, the attending physician, have reviewed and verified all procedure medications. Yes, all medications given per verbal order History/Risk Factors Hypertension: Yes Dyslipidemia: Yes Peripheral Arterial Disease (PAD): No Myocardial Infarction ([place]): No Obesity: Yes Renal Disease: No Tobacco Use: Never Prior Interventions PCI: No CABG: No Valve Surgery: No Report Signatures Finalized by Aster Baez MD on 08/18/2021 07:00 PM
--- NOTE | 2021-08-06 06:16 | PC.NURSE ---
Patient taken to lab coordinator at 0608.
--- NOTE | 2021-08-06 07:20 | W.PM.OPSUD ---
Surgery/Procedure H&P Update DATE OF PROCEDURE: August 06, 2021 DATE H&P PERFORMED: 08/05/21 H&P UPDATE INFORMATION: I have reviewed H&P completed within last 30 days, I have examined patient prior to procedure and No changes to prior documentation PREOP DIAGNOSIS: Non-ST elevation [place] PATIENT REASSESSED PRIOR TO SEDATION, WITH NO CHANGE NOTED: Yes PHYSICAL EXAM: alert and oriented x 3 AIRWAY EVAL/ANESTHESIA PLAN: ASA II and Risks, benefits & alternatives of sedation and/or procedure discussed ADDITIONAL INFORMATION: All risk benefit and alternative for the procedure has been explained. Patient has been explained risk for stroke contrast-induced nephropathy major minor bleed urgent emergent bypass surgery vascular injury infection. She is a candidate for DAPT he agrees to proceed with it
--- NOTE | 2021-08-06 07:23 | PM.PN ---
Subjective Subjective: Interval history: Status post left heart cath revealed ostial significant 90% stenosis of the circumflex. It was treated with balloon angioplasty followed by drug-eluting stent excellent angiographic result with WENDY-3 flow was restored. Medications: Reviewed: Yes Vitals/I&O/Wt Last Vital Signs Temp 98 F 08/06/21 04:00 Pulse 54 L 08/06/21 06:00 Resp 19 H 08/06/21 06:00 BP 139/56 08/06/21 06:00 Pulse Ox 98 08/06/21 06:00 08/05/21 08/06/21 08/06/21 22:59 06:59 14:59 Intake Total 96 / 904.75 79.40 / 984.15 Output Total 750 / 750 Balance 96 / 904.75 -670.60 / 234.15 Weight last 48 hrs Weight 226 lb 1 oz Weight 220 lb Physical Exam Narrative: EXAM NARRATIVE: GENERAL: Patient is alert, awake and oriented x3. NECK: No jugular vein distension. HEENT: No cyanosis. No icterus. No pallor. HEART: Regular S1 and S2. No murmur, rub or gallop. LUNGS: Clear to auscultate bilaterally. ABDOMEN: Soft, nontender and nondistended. Positive bowel sounds. No guarding, rebound or tenderness. CENTRAL NERVOUS SYSTEM: Grossly nonfocal. EXTREMITIES: Lower extremities without edema bilaterally. Const: COMMON NORMALS: alert Neuro: SENSORIUM/ORIENTATION: Yes alert Data : 08/06/21 04:20 08/06/21 04:20 A&P Assessment and plan (1) NSTEMI (non-ST elevated myocardial infarction): S/p balloon angioplasty and drug-eluting stent of the ostial circumflex. Excellent angiographic result with WENDY-3 flow was restored. Continue aspirin statin and Plavix and beta-kaya. Status: Acute (2) Hypertension: Well-controlled Status: Acute Qualifiers: Hypertension type: primary hypertension Qualified Code(s): I10 - Essential (primary) hypertension (3) Autoimmune hemolytic anemia: Continue folic acid Status: Chronic (4) Hyperlipidemia: Continue statin Status: Chronic Qualifiers: Hyperlipidemia type: other hyperlipidemia Qualified Code(s): E78.49 - Other hyperlipidemia Attestations Medical Necessity Statement*: Patient require continuation hospitalization post cath care. Coding Level of Care Code Established Pt Acute Financial Solutions Advisor for Chg Fwd Patient Type Established History Detailed Exam Detailed Medical Decision Making Moderate Complexity Diagnoses NSTEMI (non-ST elevated myocardial infarction) I21.4 Hypertension I10 Hypertension type: primary hypertension Autoimmune hemolytic anemia D59.10 Hyperlipidemia E78.49 Hyperlipidemia type: other hyperlipidemia
--- NOTE | 2021-08-06 07:25 | PC.NURSE ---
TO ICU via wheelchair. HR 49, TB in place, +pulses all four extremities. Patient drowsy. No complaints of pain or discomfort.
[2021-08-06] MEDS: sodium chloride 0.45% 1,000 ML 100 ML IV (08:42)
[2021-08-06] MEDS: HYDROcodone-acetaminophen 5-325 mg Tablet 1 TAB PO (08:47)
[2021-08-06] MEDS: aspirin 81 mg EC Tablet PO (08:48)
[2021-08-06] MEDS: clopidogrel 75 mg Tablet PO (08:48)
[2021-08-06] MEDS: fluoxetine 20 mg Capsule PO (08:48)
[2021-08-06] MEDS: pantoprazole DR 40 mg Tablet PO (08:48)
[2021-08-06] MEDS: folic acid 1 mg Tablet PO (08:48)
[2021-08-06] MEDS: ondansetron 2 mg/ML SDV 2 mL 4 MG IVP ×2 (08:51→16:42)
--- NOTE | 2021-08-06 10:01 | P.PN_ITS ---
Subjective Subjective: Interval history: Marilou reports she is doing well. She has just come back from angiogram. A circumflex stent was placed. She denies any chest discomfort currently. Medications: Reviewed: Yes Vitals/I&O/Wt Last Vital Signs Temp 98 F 08/06/21 04:00 Pulse 52 L 08/06/21 09:00 Resp 20 H 08/06/21 09:00 BP 93/46 08/06/21 09:00 Pulse Ox 100 08/06/21 09:00 08/05/21 08/06/21 08/06/21 22:59 06:59 14:59 Intake Total 96 / 904.75 79.40 / 984.15 1340 / 1340 Output Total 750 / 750 0 / 0 Balance 96 / 904.75 -670.60 / 234.15 1340 / 1340 Weight last 48 hrs Weight 102.54 kg Weight 99.79 kg Physical Exam Narrative: EXAM NARRATIVE: General exam no apparent distress Neck is supple Cardiovascular regular rate and rhythm without murmur Lungs clear Abdomen is soft with positive bowel sounds Extremities no cyanosis clubbing or edema Data : 08/06/21 04:20 08/06/21 04:20 A&P Assessment and plan (1) NSTEMI (non-ST elevated myocardial infarction): Significant troponin delta Beta-kaya, statin, aspirin, Plavix. She is somewhat bradycardic. Reduce beta-kaya to 12.5 mg twice daily Cardiology consultation appreciated Circumflex stent placed this morning Likely discharge tomorrow Echocardiogram demonstrated preserved ejection fraction, mild pulmonary hypertension, mild to moderate tricuspid regurgitation Status: Acute (2) Hypertension: With hypertensive urgency on admission, now improved. Off nitroglycerin drip Status: Acute Qualifiers: Hypertension type: primary hypertension Qualified Code(s): I10 - Essential (primary) hypertension (3) Atrial fibrillation: Sounds like she has had an arrhythmia identified in the past, likely atrial fibrillation but upon follow-up with physicians after it was identified she had sinus rhythm. Review of records here demonstrates sinus rhythm when she had stress test although was having frequent PACs. She has never been any specific treatment for atrial fibrillation nor on any anticoagulation. No definitive diagnosis of atrial fibrillation. 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 She has Joseluis positive warm reacting IgG antibody associated with mild anemia. She is chronically on folate supplementation. Has seen Dr. De La Cruz in the past Continue to follow CBCs closely Status: Chronic (6) Depression: Continue fluoxetine Status: Chronic Additional A&P Information Protonix for GI prophylaxis Lovenox will suffice for DVT prophylaxis Attestations Medical Necessity Statement*: Needs continued hospitalization for close monitoring following angiogram. Likely discharge tomorrow. 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
--- NOTE | 2021-08-06 14:38 | PC.NURSE ---
TR band removed, 2x2 applied over site, bio-occlusive applied. +3 pulses.
[2021-08-06] MEDS: calcium carbonate 500 mg Chew Tablet 1000 MG PO (15:46)
[2021-08-06] MEDS: lisinopril 5 mg Tablet PO (17:39)
[2021-08-06] MEDS: metoprolol tartrate 25 mg Tablet 12.5 MG PO (20:54)
[2021-08-06] MEDS: atorvastatin 40 mg Tablet PO (20:54)
[2021-08-06] MEDS: temazepam 15 mg Capsule PO (20:54)
[2021-08-07] VITALS (31 sets, daily range): BP systolic 84–168; BP diastolic 51–119; PULSE 54–80; RESP 4–32; TEMP 36.8–37.1; O2SAT 90–100
[2021-08-07] MEDS: enoxaparin 40 mg/0.4 mL Syringe SUBCUT (00:31)
[2021-08-07 05:00] LABS: Basophils # 0.1 10^3/uL (0.0-0.1); Basophils % 0.5 %; Eosinophils # 0.1 10^3/uL (0.0-0.8); Eosinophils % 0.5 %; Hemoglobin 9.8 g/dL (11.5-15.3); Lymphocytes # 1.7 10^3/uL (0.8-4.8); Lymphocytes % 14.2 %; Mean Corpuscular HGB Conc 29.7 g/dL (30.0-36.0); Mean Corpuscular Hemoglobin 29.7 pg (28.0-34.0); Mean Platelet Volume 11.4 fL (7.4-10.4); Monocytes # 0.7 10^3/uL (0.2-0.9); Monocytes % 6.1 %; Neutrophils # 9.44 10^3/uL (1.8-7.7); Neutrophils % 78.1 %; Nucleated Red Blood Cells % 0 %; Platelet Count 146 10^3/cmm (130-400); Red Cell Distribution Width 15.3 % (12.1-15.1); White Blood Count 12.1 10^3/uL (4.0-10.0)
[2021-08-07 05:27] LABS: Anion Gap 13.7 (5-19); Blood Urea Nitrogen 13 mg/dL (8-23); Calcium 8.7 mg/dL (8.5-10.5); Carbon Dioxide 26 mmol/L (22-29); Chloride 105 mmol/L (98-107); Glucose 105 mg/dL (65-115); Osmolality Calculated 292 mOsm/kg (285-295); Potassium 3.7 mmol/L (3.5-5.1); Sodium 141 mmol/L (136-145)
--- NOTE | 2021-08-07 06:50 | PC.NURSE ---
Shift Note Frequent safety and comfort rounds continue. Orders and/or nursing care completed as indicated. Patient monitored for response to intervention and treatment(s). Education provided includes treatment plan and goals. Patient verbalizes understanding of teaching. Patient slept most of the evening, no complaints of pain overnight. Got up to bedside commode with minimum assistance. Remains on room air. Will continue to monitor.
--- NOTE | 2021-08-07 08:14 | PC.SOCIAL ---
IMM update IMM updated with patient and at bedside. Copy Pg 2 provided. Verbalized an understanding. Initialled, dated, timed, and placed in chart.
[2021-08-07] MEDS: clopidogrel 75 mg Tablet PO (09:39)
[2021-08-07] MEDS: folic acid 1 mg Tablet PO (09:39)
[2021-08-07] MEDS: aspirin 81 mg EC Tablet PO (09:39)
[2021-08-07] MEDS: metoprolol tartrate 25 mg Tablet 12.5 MG PO (09:39)
[2021-08-07] MEDS: pantoprazole DR 40 mg Tablet PO (09:39)
[2021-08-07] MEDS: fluoxetine 20 mg Capsule PO (09:40)
[2021-08-07] MEDS: lisinopril 5 mg Tablet PO (09:40)
--- NOTE | 2021-08-07 09:46 | PC.CHAP ---
Pastoral Care Encounter/Spiritual Assessment Type of Contact [] Declined clinical nursing assistant visit [] Patient/Family/Request visit [] Outpatient visit [] Follow-up visit [] Physician referral [] Code/Alert [x] Routine visit [] Staff referral [] Actively dying [] Patient sleeping [x] Family support [] [] Out of room [] Palliative care [] [] Receiving care in room [] Pre-surgical visit [] Trauma [] Long length of stay [x] ICU visit [] Other: Relational/Emotional Strength [] Patient feels connected with others/family/visitors/staff [] Distress [] Loneliness/isolation [] Abandonment Spirituality of Patient [] Person of Larissa [] Attends Taoism of their Larissa [] Believes in Prayer [] Reads Bible or Scientology materials [] There are Spiritual issues to be addressed Platform Stapler Interventions [x] Prayer [x] Active listening [x] Non-anxious presence [x] Spiritual/emotional support [] Crisis/trauma care [] Spiritual counseling [] Bereavement support [] Provided bereavement packet [] Provided Bible/devotional materials [] Provided toy/stuffed animal, coloring book to patient or family member [] Provided Communion [] Anointing/[place] [] Salvation [x] Completed spiritual assessment [] Other: Impact on Illness or Injury [] Angry [] Fearful [] Anxious [] Often cries [] Exhaustion [] Unable to work [] Unable to attend sabianism [] Unable to walk/stand [] Unable to read [] Unable to drive [] Unable to eat/drink [] Unable to sleep [] Unable to be with family [] Patient intubated [] Other: Summary delightful couple.. headed home today.. ready to take care of her... Time spent with patient 5 min
--- NOTE | 2021-08-07 10:12 | PM.DCS ---
Discharge Providers Date of Admission: 08/04/21 23:25 Date of Discharge: August 07, 2021 Attending Provider at Admission: Aleida Zhao MD Attending Provider at Discharge: Justin Randolph MD Primary Care Provider: Dax Anthony Diagnoses at Discharge Discharge Diagnosis (1) NSTEMI (non-ST elevated myocardial infarction): Status: Acute (2) Hypertension: Status: Acute Qualifiers: Hypertension type: primary hypertension Qualified Code(s): I10 - Essential (primary) hypertension (3) Atrial fibrillation: Status: Inactive (4) Hyperlipidemia: Status: Chronic Qualifiers: Hyperlipidemia type: other hyperlipidemia Qualified Code(s): E78.49 - Other hyperlipidemia (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 Recommended to have yearly CBC, retic, LDH, CMP (6) Depression: Status: Chronic Reason for Visit Reason for Visit: Chest Pains\Weakness Hospital Course Hospital Course Marilou is a 75-year-old white female who presented to the hospital with complaints of chest discomfort. EKG was nondiagnostic. Troponin was elevated with significant delta. She was placed on statin, aspirin, Plavix, beta-kaya, and anticoagulated. Cardiology was consulted. She underwent angiogram August 06, and circumflex ostial lesion was stented. Following this she did quite well. She reported a slight amount of chest discomfort right after the procedure, but no recurrence. On August 07 she was chest discomfort free and it was thought she could be discharged home. I discussed the risks and benefits of Plavix with her as well as the importance of taking it for 12 months following the stent. She was given an opportunity to ask questions, and we discussed her entire hospital stay. She will follow-up with cardiology within the next 3 to 5 days, and her primary care provider in 4 to 7 days with CBC and BMP on follow-up. Echocardiogram was performed during her hospital stay demonstrated an EF of 60 to 65%, mild to moderate tricuspid regurgitation, mild pulmonary hypertension Physical Exam Narrative: EXAM NARRATIVE: General exam no distress Neck is supple Cardiovascular regular rate rhythm Lungs clear Abdomen is soft, positive bowel sounds Extremities no cyanosis clubbing or edema, catheter site right radial wrist without significant hematoma. Discharge Data Data Completed and Pending: Completed Studies During Hospitalization Category Date Time Status XR chest 1V lucy ble [id number] Stat Exams 08/04/21 20:42 Completed CV. echo complete * [id number] Routine Ultrasound 08/05/21 02:04 Completed Pending at discharge Category Date Time Status DYE FEEDER request for service Routin e Exams 08/06/21 06:00 Taken Labs from last 24 hours 08/07/21 08/07/21 04:20 04:20 WBC 12.1 H RBC 3.30 L Hgb 9.8 L Hct 33.0 L MCV 100.0 H MCH 29.7 MCHC 29.7 L RDW 15.3 H Plt Count 146 MPV 11.4 H Neut % (Auto) 78.1 Lymph % (Auto) 14.2 [place] % (Auto) 6.1 Eos % (Auto) 0.5 Baso % (Auto) 0.5 Neut # (Auto) 9.44 H Lymph # (Auto) 1.7 [place] # (Auto) 0.7 Eos # (Auto) 0.1 Baso # (Auto) 0.1 Nucleated RBC % (a uto) 0 Nucleated RBCs # 0.0 Sodium 141 Potassium 3.7 Chloride 105 Carbon Dioxide 26 Anion Gap 13.7 BUN 13 Creatinine 0.7 GFR Calculation Not Reportable Glucose 105 Calculated Osmolal ity 292 Calcium 8.7 Vitals: Last Vital Signs Temp 98.7 F 08/07/21 04:00 Pulse 75 08/07/21 08:00 Resp 20 H 08/07/21 08:00 BP 139/53 08/07/21 08:00 Pulse Ox 93 08/07/21 08:00 Discharge Plan Discharge Patient Disposition: Home Condition: Stable Prescriptions: New atorvastatin 40 mg Tablet 40 mg PO BEDTIME Qty: 30 RF: 0 pantoprazole 40 mg Tablet,Delayed Release (Dr/Ec) 40 mg PO DAILY Qty: 30 RF: 0 lisinopril 5 mg Tablet 5 mg PO BID Qty: 60 RF: 0 metoprolol tartrate 25 mg Tablet 12.5 mg PO BID@0900,2100 Qty: 30 RF: 0 clopidogrel 75 mg Tablet 75 mg PO DAILY Qty: 30 RF: 11 Continued folic acid 1 mg tablet 1 mg PO DAILY RF: 0 fluoxetine 20 mg capsule 20 mg PO DAILY RF: 0 aspirin 81 mg Tablet,Delayed Release (Dr/Ec) 81 mg PO DAILY RF: 0 Eye Multivitamin 7,160 unit- 113 mg-100 unit Tablet 1 tab PO DAILY RF: 0 magnesium citrate 100 mg Capsule 100 mg PO DAILY RF: 0 Discontinued lovastatin 20 mg tablet 20 mg PO DAILY RF: 0 Discharge Orders: Discharge Order (Routine); Ordered 08/07/21 Ordered By: Justin Randolph Referrals: Aster Baez MD [Physician] - 4-7 days (May see nurse practitioner early next week, follow-up angiogram) Dax Anthony [Primary Care Provider] - 4-7 days (CBC, BMP on follow-up) Discharge Diet: Cardiac Discharge Activity: Increase activity as tolerated Patient Instructions: Coronary Angioplasty (DC), Opioid Safety Activity Restrictions/Additional Instructions: Take all medicine as prescribed Notify primary care provider immediately for any bleeding, black or tarry stool Keep follow-up Discharge Attestations Time Spent in Discharge Care*: greater than 30 min Quality Metrics Clinical Quality Measures During this hospital stay, did patient experience: AMI Clinical Trial Participant: No Contraindication to aspirin (AMI): Aspirin given Contraindication to statin: Statin prescribed Contraindication to PCI: PCI performed Coding Level of Care Code Acute [facility] DC note Diagnoses NSTEMI (non-ST elevated myocardial infarction) I21.4 Hypertension I10 Hypertension type: primary hypertension Atrial fibrillation I48.91 Hyperlipidemia E78.49 Hyperlipidemia type: other hyperlipidemia Autoimmune hemolytic anemia D59.10 Depression F32.A
--- NOTE | 2021-08-07 14:58 | P.PN_ITS ---
Subjective Subjective: Interval history: Patient has mild chest discomfort post PCI otherwise no event noted. She is stable walking around no complaint. Medications: Reviewed: Yes Vitals/I&O/Wt Last Vital Signs Temp 98.7 F 08/07/21 12:59 Pulse 80 08/07/21 14:00 Resp 32 H 08/07/21 14:00 BP 152/68 08/07/21 14:00 Pulse Ox 96 08/07/21 14:00 08/06/21 08/07/21 08/07/21 22:59 06:59 14:59 Intake Total 1240 / 2820 600 / 600 Output Total 400 / 400 300 / 300 Balance 1240 / 2820 -400 / 2420 300 / 300 Weight last 48 hrs Weight 226 lb 1 oz Physical Exam Narrative: EXAM NARRATIVE: GENERAL: Patient is alert, awake and oriented x3. NECK: No jugular vein distension. HEENT: No cyanosis. No icterus. No pallor. HEART: Regular S1 and S2. No murmur, rub or gallop. LUNGS: Clear to auscultate bilaterally. ABDOMEN: Soft, nontender and nondistended. Positive bowel sounds. No guarding, rebound or tenderness. CENTRAL NERVOUS SYSTEM: Grossly nonfocal. EXTREMITIES: Lower extremities without edema bilaterally. Const: COMMON NORMALS: alert Neuro: SENSORIUM/ORIENTATION: Yes alert Data : 08/07/21 04:20 08/07/21 04:20 A&P Assessment and plan (1) NSTEMI (non-ST elevated myocardial infarction): Stable doing fine from cardiovascular perspective denies any complaint of any chest pain shortness of breath. We will continue aspirin statin Plavix JAIMEE inhibitor and atorvastatin. Status: Acute (2) Hypertension: Not well controlled will increase lisinopril Status: Acute Qualifiers: Hypertension type: primary hypertension Qualified Code(s): I10 - Essential (primary) hypertension (3) Autoimmune hemolytic anemia: Continue folic acid Status: Chronic (4) Hyperlipidemia: Continue statin Status: Chronic Qualifiers: Hyperlipidemia type: other hyperlipidemia Qualified Code(s): E78.49 - Other hyperlipidemia Attestations Medical Necessity Statement*: Patient can be discharged home. Coding Level of Care Code Established Pt Acute Document Controller for Tiera Merino Patient Type Established History Detailed Exam Detailed Medical Decision Making Moderate Complexity Diagnoses NSTEMI (non-ST elevated myocardial infarction) I21.4 Hypertension I10 Hypertension type: primary hypertension Autoimmune hemolytic anemia D59.10 Hyperlipidemia E78.49 Hyperlipidemia type: other hyperlipidemia
--- NOTE | 2021-08-07 15:26 | PC.NURSE ---
Patient given discharge instructions, went over medications with patient and spouse. IV's removed earlier. Patient wheeled to private vehicle by this nurse. Spouse driving. Medications delivered to patient in the room.
== END 2021-08-07 13:27 | disposition home or self-care (01) | DRG 247 ==
LOC: ER 23:22 → ICU 08-05 00:25
PROVIDERS: Emergency Medicine; Internal Medicine Cardiovascular Disease; Admitting Provider Hospitalist; Emergency Provider Emergency Medicine; PCP Family Medicine; Visit Provider Internal Medicine
PROC: 027034Z Dilation of Coronary Artery, One Artery with Drug-eluting Intraluminal Device, Percutaneous Approach (ICD-10-PCS; principal; 2021-08-06 06:00)
PROC: 027034Z Dilation of Coronary Artery, One Artery with Drug-eluting Intraluminal Device, Percutaneous Approach (ICD-10-PCS; 2021-08-06 06:00)
DX: I21.4 Non-ST elevation (NSTEMI) myocardial infarction (principal); D59.10 Autoimmune hemolytic anemia, unspecified; I16.0 Hypertensive urgency; I10 Essential (primary) hypertension; I25.118 Atherosclerotic heart disease of native coronary artery with other forms of angina pectoris; E78.5 Hyperlipidemia, unspecified; I48.91 Unspecified atrial fibrillation; F32.A Depression, unspecified; E78.49 Other hyperlipidemia; I27.20 Pulmonary hypertension, unspecified; I07.1 Rheumatic tricuspid insufficiency; Z79.82 Long term (current) use of aspirin
CPT/HCPCS: 36415; 71045; 80048; 80053; 80061; 83010; 83615; 83735; 83880; 84100; 84439; 84443; 84484; 85025; 85045; 85610; 85730; 86850; 86900; 93005; 93306; 93454; 96372; 96374; 99285; C1725; C1769; C1874; C1887; C1894; C9600; J0360; J1644; J1650; J2250; J2405; J3010; J3490; J7030; Q0163; Q9967

== ENCOUNTER 2021-08-11 19:08 | Inpatient (IN) | payer MEDICARE, BC, SELFPAY ==
[2021-08-11 19:10] VITALS: BP 125/66; PULSE 69; RESP 18; TEMP 36.7; O2SAT 98; BMI 34.3
--- NOTE | 2021-08-11 19:11 | XRR_ITS ---
PROCEDURE INFORMATION: Exam: XR Chest Exam date and time: 08/11/2021 7:11 PM Age: 75 years old Clinical indication: Pain; Chest pressure; Additional info: Cp TECHNIQUE: Imaging protocol: XR of the chest. Views: 1 view. COMPARISON: CR (CHEST, ) 08/04/2021 9:04 PM FINDINGS: Lungs: Pulmonary vascular congestion with increased interstitial markings and hazy bibasilar opacities increased from prior. Small layering pleural effusions suspected, left greater than right. No dense consolidation. No visible pneumothorax. Pleural spaces: See Lungs finding. Heart/Mediastinum: Moderate enlargement of the cardiac silhouette similar to prior. Bones/joints: Unremarkable. XR/XR chest 1V portable [id number] IMPRESSION: Findings most consistent with congestive failure with increasing pulmonary edema and small effusions. Radiation Dose CTDIVOL = (mGy): DLP = (mGy-cm)
--- NOTE | 2021-08-11 19:11 | ECG_ITS ---
[facility] Test Date: 2021-08-11 Pat Name: Marilou Leiva Department: Room: 107 Gender: Female Investigator: : 1945 Requested By: Lowell Barclay Order Number: [id number] Noreen MD: Joshua Lance M.D. Measurements Intervals [place] Rate: 68 P: 56 NH: 130 QRS: 48 QRSD: 98 T: 58 QT: 418 QTc: 446 Interpretive Statements SINUS RHYTHM POSSIBLE RIGHT VENTRICULAR CONDUCTION DELAY [RSR (QR) IN V1/V2] NONSPECIFIC ST & T-WAVE ABNORMALITY Compared to ECG 08/05/2021 02:45:16 T-wave abnormality now present Ventricular premature complex(es) no longer present Incomplete right bundle-branch block no longer present Electronically Signed On 08-12-2021 16:45:54 ELECTRONIC TECH by Joshua Lance M.D. [id number]
[2021-08-11 20:07] LABS: Basophils # 0.1 10^3/uL (0.0-0.1); Basophils % 0.9 %; Eosinophils # 0.1 10^3/uL (0.0-0.8); Eosinophils % 0.4 %; Hematocrit 30.6 % (37.0-47.0); Hemoglobin 9.1 g/dL (11.5-15.3); Lymphocytes # 1.2 10^3/uL (0.8-4.8); Lymphocytes % 8.4 %; Mean Corpuscular HGB Conc 29.7 g/dL (30.0-36.0); Mean Corpuscular Hemoglobin 29.5 pg (28.0-34.0); Mean Corpuscular Volume 99.4 fl (81-99); Monocytes # 0.8 10^3/uL (0.2-0.9); Monocytes % 5.6 %; Neutrophils # 11.78 10^3/uL (1.8-7.7); Neutrophils % 84.1 %; Nucleated Red Blood Cells % 0.2 %; Platelet Count 234 10^3/cmm (130-400); Red Blood Count 3.08 10^6/uL (4.1-5.3)
[2021-08-11 20:22] LABS: INR 1.07 (0.8-1.2); Partial Thromboplastin Time 31.8 SECONDS (23.9-36.7)
[2021-08-11 20:32] VITALS: BP 124/57; PULSE 68; RESP 25; O2SAT 96
[2021-08-11 20:42] LABS: Troponin(5th) Baseline 690 ng/L (0-10)
[2021-08-11 20:45] LABS: Alanine Aminotransferase 29 U/L (0-33); Albumin Level 3.7 g/dL (3.5-5.2); Alkaline Phosphatase 133 IU/L (35-105); Anion Gap 15.9 (5-19); Aspartate Amino Transferase 24 U/L (0-32); Blood Urea Nitrogen 12 mg/dL (8-23); Calcium 8.3 mg/dL (8.5-10.5); Carbon Dioxide 25 mmol/L (22-29); Chloride 104 mmol/L (98-107); Creatine Phosphokinase 64 U/L (26-192); Globulin 2.1 g/dL (1.3-4.6); Glucose 115 mg/dL (65-115); NT Pro B Type Natriuretic Pept 4223 pg/mL (0-125); Osmolality Calculated 293 mOsm/kg (285-295); Potassium 3.9 mmol/L (3.5-5.1); Sodium 141 mmol/L (136-145); Total Bilirubin 0.8 mg/dL (0.15-1.2); Total Protein 5.8 g/dL (6.6-8.7)
--- NOTE | 2021-08-11 21:11 | ECG_ITS ---
[facility] Test Date: 2021-08-11 Pat Name: Marilou Leiva Department: Room: 107 Gender: Female Integrity Analyst: : 1945 Requested By: Lowell Barclay Order Number: [id number] Noreen MD: Joshua Lance M.D. Measurements Intervals [place] Rate: 67 P: 33 [place]: 138 QRS: 46 QRSD: 97 T: 46 QT: 431 QTc: 456 Interpretive Statements SINUS RHYTHM INCOMPLETE RIGHT BUNDLE BRANCH BLOCK [90+ ms QRS DURATION, TERMINAL R IN V1/V2, 40+ ms S IN I/aVL/V4/V5/V6] NONSPECIFIC ST & T-WAVE ABNORMALITY Compared to ECG 08/05/2021 02:45:16 T-wave abnormality now present Ventricular premature complex(es) no longer present Electronically Signed On 08-12-2021 16:49:23 SKEIN DYER by Joshua Lance M.D. [id number]
[2021-08-11 21:52] LABS: Troponin 5 2HR 578.8 ng/L (0-10)
[2021-08-11 22:19] VITALS: RESP 19
[2021-08-11] MEDS: ondansetron 2 mg/ML SDV 2 mL 4 MG IVP (22:19)
[2021-08-11] MEDS: morphine 4 mg/mL SDV 1 mL 2 MG IVP (22:19)
--- NOTE | 2021-08-11 22:49 | P.HP_ITS ---
Providers/Chief Complaint Primary Care Provider: Dax Anthony Chief Complaint: CP History of Present Illness Marilou Leiva is a 75 year old female with past medical history of coronary artery disease, hypertension, dyslipidemia, atrial fibrillation and recent hospitalization for non-ST elevation [place], status post drug-eluting stent pl acement by Dr. Baez who is presenting now to emergency room with complaints of shortness of breath. She underwent angiogram August 06, and circumflex ostial lesion was stented. She was discharged home but started experiencing chest discomfort and shortness of breath 2 days ago which progressively got worse. Currently she describes her symptoms as moderate. It is constant. Physical activities make it worse. Denies palpitations, dizziness or lightheadedness. Reports dry cough. Reports loose stools. No blood or black stool. No fever or chills. Denies similar in the past. Review of Systems General: Reports: 10 or more systems reviewed and unremarkable except in HPI and below Medications/Allergies Home Medications Medication Instructions Recorded Confirmed Last Taken Type Eye Multivitamin 1 tab PO DAILY 08/05/21 08/05/21 08/04/21 History aspirin 81 mg PO DAILY 08/05/21 08/05/21 08/04/21 History fluoxetine 20 mg PO DAILY 08/05/21 08/05/21 08/04/21 History folic acid 1 mg PO DAILY 08/05/21 08/05/21 08/04/21 History magnesium citrate 100 mg PO DAILY 08/05/21 08/05/21 08/04/21 History atorvastatin 40 mg PO BEDTIME #30 tab 08/07/21 Unknown Rx clopidogrel 75 mg PO DAILY #30 tab 08/07/21 Unknown Rx lisinopril 5 mg PO BID #60 tab 08/07/21 Unknown Rx metoprolol tartrate 12.5 mg PO BID@0900,2100 #30 tab 08/07/21 Unknown Rx pantoprazole 40 mg PO DAILY #30 tab 08/07/21 Unknown Rx Allergies Allergy/AdvReac Type Severity Reaction Status Date / Time Tetracyclines Allergy Unknown Verified 08/11/21 19:19 PFSH Acute PFSH: Medical History (Updated 08/11/21 @ 23:44 by Dong Foley) Arrhythmia (~2011) Paroxysmal, likely atrial fibrillation, identified on eval for possible kidney donor, then not captured again, not been on rate control agents, other treatment or anticoagulation 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 Recommended to have yearly CBC, retic, LDH, CMP Depression 1 para 1 History of stress test (11/2018) normal myocardia perfusion imaging, EF 66% Hyperlipidemia NSTEMI (non-ST elevated myocardial infarction) Surgical History (Updated 08/05/21 @ 02:01 by Aleida Zhao MD) History of tubal ligation Family History (Updated 08/05/21 @ 02:01 by Aleida Zhao MD) Father CAD (coronary artery disease) Social History (Updated 08/05/21 @ 02:02 by Aleida Zhao MD) Smoking and tobacco status: never smoked Alcohol intake: never Lives independently: Yes Household members: spouse Marital status: Number of children: 1 Vitals/I&O/Wt Last Vital Signs Temp 98.1 F 08/11/21 19:10 Pulse 68 08/11/21 20:32 Resp 19 H 08/11/21 22:19 BP 124/57 08/11/21 20:32 Pulse Ox 96 08/11/21 20:32 Weight last 48 hrs Weight 102.512 kg Physical Exam Narrative: EXAM NARRATIVE: The patient is awake alert oriented. No acute distress. Mood and affect are appropriate. Responses are adequate. Eyes PERRL, extraocular muscles are intact Neck supple. No JVD Lungs bibasilar crackles. No respiratory distress Heart S1, S2, regular Abdomen soft, nontender, bowel sounds are present Extremities 1+ pitting edema. No cyanosis no calf tenderness bilaterally Neurologic examination is nonfocal. Normal speech. Data : 08/11/21 19:20 08/11/21 19:20 Other Labs: Laboratory Results WBC 14.0 10^3/uL (4.0-10.0) H 08/11/21 19:20 RBC 3.08 10^6/uL (4.1-5.3) L 08/11/21 19:20 Hgb 9.1 g/dL (11.5-15.3) L 08/11/21 19:20 Hct 30.6 % (37.0-47.0) L 08/11/21 19:20 MCV 99.4 fl (81-99) H 08/11/21 19:20 MCH 29.5 pg (28.0-34.0) 08/11/21 19:20 MCHC 29.7 g/dL (30.0-36.0) L 08/11/21 19:20 RDW 15.0 % (12.1-15.1) 08/11/21 19:20 Plt Count 234 10^3/cmm (130-400) 08/11/21 19:20 MPV 12.0 fL (7.4-10.4) H 08/11/21 19:20 Neut % (Auto) 84.1 % 08/11/21 19:20 Lymph % (Auto) 8.4 % 08/11/21 19:20 [place] % (Auto) 5.6 % 08/11/21 19:20 Eos % (Auto) 0.4 % 08/11/21 19:20 Baso % (Auto) 0.9 % 08/11/21 19:20 Neut # (Auto) 11.78 10^3/uL (1.8-7.7) H 08/11/21 19:20 Lymph # (Auto) 1.2 10^3/uL (0.8-4.8) 08/11/21 19:20 [place] # (Auto) 0.8 10^3/uL (0.2-0.9) 08/11/21 19:20 Eos # (Auto) 0.1 10^3/uL (0.0-0.8) 08/11/21 19:20 Baso # (Auto) 0.1 10^3/uL (0.0-0.1) 08/11/21 19:20 Nucleated RBC % (auto) 0.2 % 08/11/21 19: Nucleated RBCs # 0.0 /100WBC 08/11/21 19:20 PT 14.30 SECONDS (12.1-14.9) 08/11/21 19:20 INR 1.07 (0.8-1.2) 08/11/21 19:20 APTT 31.8 SECONDS (23.9-36.7) 08/11/21 19:20 Sodium 141 mmol/L (136-145) 08/11/21 19:20 Potassium 3.9 mmol/L (3.5-5.1) 08/11/21 19:20 Chloride 104 mmol/L (98-107) 08/11/21 19:20 Carbon Dioxide 25 mmol/L (22-29) 08/11/21 19:20 Anion Gap 15.9 (5-19) 08/11/21 19:20 BUN 12 mg/dL (8-23) 08/11/21 19:20 Creatinine 0.8 mg/dL (0.5-0.9) 08/11/21 19:20 GFR Calculation Not Reportable 08/11/21 19:20 Glucose 115 mg/dL (65-115) 08/11/21 19:20 Calculated Osmolality 293 mOsm/kg (285-295) 08/11/21 19:20 Calcium 8.3 mg/dL (8.5-10.5) L 08/11/21 19:20 Total Bilirubin 0.8 mg/dL (0.15-1.2) 08/11/21 19:20 AST 24 U/L (0-32) 08/11/21 19:20 ALT 29 U/L (0-33) 08/11/21 19:20 Alkaline Phosphatase 133 IU/L (35-105) H 08/11/21 19:20 Creatine Kinase 64 U/L (26-192) 08/11/21 19:20 Troponin T Baseline 690 ng/L (0-10) H* 08/11/21 19:20 Troponin T 120 Minute 578.8 ng/L (0-10) H 08/11/21 21:09 Delta Troponin T -111.2 ABS# (0-10) L 08/11/21 21:09 NT-Pro-B Natriuret Pep 4223 pg/mL (0-125) H 08/11/21 19:20 Total Protein 5.8 g/dL (6.6-8.7) L 08/11/21 19:20 Albumin 3.7 g/dL (3.5-5.2) 08/11/21 19:20 Globulin 2.1 g/dL (1.3-4.6) 08/11/21 19:20 Impressions Chest X-Ray 08/11/21 19:11 IMPRESSION: Findings most consistent with congestive failure with increasing pulmonary edema and small effusions. Radiation Dose CTDIVOL = (mGy): DLP = (mGy-cm) A&P Assessment and plan (1) CHF exacerbation: Status: Acute (2) Leukocytosis: Status: Acute (3) Diarrhea: Status: Acute (4) Hypertension: Status: Acute Qualifiers: Hypertension type: primary hypertension Qualified Code(s): I10 - Essential (primary) hypertension (5) Autoimmune hemolytic anemia: Status: Chronic (6) Hyperlipidemia: Status: Chronic Qualifiers: Hyperlipidemia type: other hyperlipidemia Qualified Code(s): E78.49 - Other hyperlipidemia Additional A&P Information 75-year-old female with recent non-ST elevation [place], status post angiogram August 06, and circumflex ostial lesion stenting who is presenting with shortness of breath and chest discomfort. The findings are consistent with pulmonary edema, probably congestive heart failure acute exacerbation. CHF. We will hold her beta-kaya, continue lisinopril. We will start her on furosemide. We will recheck her labs in the morning. Will order echo. We will ask Dr. Baez to see her in the morning. Coronary artery disease. Troponin is elevated. We will continue monitoring. No acute ischemic changes though. We will continue her Plavix and aspirin. We will continue statin. We will hold beta-kaya due to acute CHF. Will resume after stabilization. Diarrhea. The patient is convinced that this is from lisinopril. I am not sure. We will monitor her for a while. Will consider additional testing or medications if it is severe or persist. Currently there is no abdominal pain or other significant GI complaints. Leukocytosis. This could be due to recent MRI. No fever. Will monitor. DVT prophylaxis. Heparin. The plan of care was discussed with the patient and her . They verbalized understanding and agreement. Attestations Medical Necessity Statement*: Observation Coding Level of Care Code Acute Assistant Plant Controller for g Fwd Diagnoses CHF exacerbation I50.9 Leukocytosis D72.829 Diarrhea R19.7 Hypertension I10 Hypertension type: primary hypertension Autoimmune hemolytic anemia D59.10 Hyperlipidemia E78.49 Hyperlipidemia type: other hyperlipidemia
[2021-08-11] MEDS: FUROsemide 10 mg/mL SDV 4mL 40 MG IVP (23:02)
[2021-08-11 23:03] VITALS: BP 100/52; PULSE 64; RESP 24; O2SAT 96
[2021-08-11 23:54] VITALS: BP 105/53; PULSE 61; RESP 22; O2SAT 94
--- NOTE | 2021-08-11 23:59 | W.ED.CHESTPA ---
HPI - Chest Pain General: Chief Complaint: Chest Pain Stated Complaint: CP Time Seen by Provider: 08/11/21 19:11 History of Present Illness: HPI narrative: 75yo who had cardc stent placed 5 days ago. She felt well on discharge, but over the weekend began to worsen over the weekend. She complains of chest pressure, mild shortness of breath, fatigue and diarrhea. No fever no vomiting. MD complaint: chest pain Pertinent past history: coronary artery disease, prior [place] and [employer] PNEUMATIC Onset (ago): day(s) Timing of current episode: episodic Prior episodes: Yes Onset: during rest Pain location: substernal Relieving factors: nothing Exacerbating factors: exertion Context: new medications and other Associated symptoms: Reports dyspnea and nausea; Deny abdominal pain, diaphoresis, fever(s), leg edema or vomiting Review of Systems Const: Denies: fever(s) or diaphoresis Eyes: Denies: change in vision Card: Reports: chest pain Resp: Reports: dyspnea; Denies: productive cough or non-productive cough GI: Reports: nausea and diarrhea; Denies: abdominal pain or vomiting [facility] ED PFSH: Medical History (Updated 08/12/21 @ 00:06 by Lowell Sheikh DO) Arrhythmia (~2011) Paroxysmal, likely atrial fibrillation, identified on eval for possible kidney donor, then not captured again, not been on rate control agents, other treatment or anticoagulation 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 Recommended to have yearly CBC, retic, LDH, CMP Depression 1 para 1 History of stress test (11/2018) normal myocardia perfusion imaging, EF 66% Hyperlipidemia NSTEMI (non-ST elevated myocardial infarction) Surgical History (Updated 08/05/21 @ 02:01 by Aleida Zhao MD) History of tubal ligation Family History (Updated 08/05/21 @ 02:01 by Aleida Zhao MD) Father CAD (coronary artery disease) Social History (Updated 08/05/21 @ 02:02 by Aleida Zhao MD) Smoking and tobacco status: never smoked Alcohol intake: never Lives independently: Yes Household members: spouse Marital status: Number of children: 1 Physical Exam Const: COMMON NORMALS: patient oriented x3 and alert GENERAL APPEARANCE: cooperative and ill appearing (mild) HENMT: COMMON NORMALS: normocephalic HEAD & SCALP: normocephalic Chest: COMMONS NORMALS: normal inspection of the chest Resp: COMMON NORMALS: normal respiratory effort, No use of accessory muscles and clear to auscultation bilaterally AUSCULTATION: clear to auscultation bilaterally Cardio: COMMON NORMALS: regular rate, regular rhythm and Peripheral pulses 2+ throughout RATE: regular rate RHYTHM: regular rhythm PERIPHERAL PULSES: Peripheral pulses 2+ throughout GI: COMMON NORMALS: Normal to inspection, nondistended, normoactive bowel sounds present and Soft to palpation PALPATION: Yes Soft to palpation Neuro: COMMON NORMALS: patient oriented x3 SENSORIUM/ORIENTATION: Yes alert Course Consultations: Consultation #1: asa Vital Signs: Vital signs: Vital Signs Temperature 98.1 F 08/11/21 19:10 Pulse Rate 61 08/11/21 23:54 Respiratory Rate 22 H 08/11/21 23:54 Blood Pressure 105/53 08/11/21 23:54 Pulse Oximetry 94 08/11/21 23:54 MDM - Chest Pain MDM Narrative: Medical decision making narrative: 75yo with hx of coronary disease presents with ongoing chest pains, fatigue and diarrhea. EKG: Sinus rhythm with a rate of 70 normal axis normal intervals no ST changes chest x-ray shows some mild pulmonary edema. She is significantly symptomatic. Her hemoglobin is down to 9.1 from 11. Troponin is following post stent. Her BNP is elevated. She will come in with pulmonary edema, and may need guaiac of her stool for the anemia. If continues to fall, could need transfusion. Lab Data: Labs: Lab Results 08/11/21 08/11/21 08/11/21 19:20 19:20 19:20 WBC 14.0 10^3/uL H 10 ^3/uL (4.0-10.0) RBC 3.08 10^6/uL L 10 ^6/uL (4.1-5.3) Hgb 9.1 g/dL L g/dL (11.5-15.3) Hct 30.6 % L % (37.0-47.0) MCV 99.4 fl H fl (81-99) MCH 29.5 pg pg (28.0-34.0) MCHC 29.7 g/dL L g/dL (30.0-36.0) RDW 15.0 % % (12.1-15.1) Plt Count 234 10^3/cmm 10^3 /cmm (130-400) MPV 12.0 fL H fL (7.4-10.4) Neut % (Auto) 84.1 % % Lymph % (Auto) 8.4 % % [place] % (Auto) 5.6 % % Eos % (Auto) 0.4 % % Baso % (Auto) 0.9 % % Neut # (Auto) 11.78 10^3/uL H 1 0^3/uL (1.8-7.7) Lymph # (Auto) 1.2 10^3/uL 10^3/ uL (0.8-4.8) [place] # (Auto) 0.8 10^3/uL 10^3/ uL (0.2-0.9) Eos # (Auto) 0.1 10^3/uL 10^3/ uL (0.0-0.8) Baso # (Auto) 0.1 10^3/uL 10^3/ uL (0.0-0.1) Nucleated RBC % (a uto) 0.2 % % Nucleated RBCs # 0.0 /100WBC /100W BC PT 14.30 SECONDS SEC ONDS (12.1-14.9) INR 1.07 (0.8-1.2) APTT 31.8 SECONDS SECO NDS (23.9-36.7) Sodium 141 mmol/L mmol/L (136-145) Potassium 3.9 mmol/L mmol/L (3.5-5.1) Chloride 104 mmol/L mmol/L (98-107) Carbon Dioxide 25 mmol/L mmol/L (22-29) Anion Gap 15.9 (5-19) BUN 12 mg/dL mg/dL (8-23) Creatinine 0.8 mg/dL mg/dL (0.5-0.9) GFR Calculation Not Reportable Glucose 115 mg/dL mg/dL (65-115) Calculated Osmolal ity 293 mOsm/kg mOsm/ kg (285-295) Calcium 8.3 mg/dL L mg/dL (8.5-10.5) Total Bilirubin 0.8 mg/dL mg/dL (0.15-1.2) AST 24 U/L U/L (0-32) ALT 29 U/L U/L (0-33) Alkaline Phosphata se 133 IU/L H IU/L (35-105) Creatine Kinase 64 U/L U/L (26-192) Troponin T Baselin e Troponin T 120 Min lower [place] Delta Troponin T NT-Pro-B Natriuret Pep 4223 pg/mL H pg/m L (0-125) Total Protein 5.8 g/dL L g/dL (6.6-8.7) Albumin 3.7 g/dL g/dL (3.5-5.2) Globulin 2.1 g/dL g/dL (1.3-4.6) 08/11/21 08/11/21 19:20 21:09 WBC RBC Hgb Hct MCV MCH MCHC RDW Plt Count MPV Neut % (Auto) Lymph % (Auto) [place] % (Auto) Eos % (Auto) Baso % (Auto) Neut # (Auto) Lymph # (Auto) [place] # (Auto) Eos # (Auto) Baso # (Auto) Nucleated RBC % (a uto) Nucleated RBCs # PT INR APTT Sodium Potassium Chloride Carbon Dioxide Anion Gap BUN Creatinine GFR Calculation Glucose Calculated Osmolal ity Calcium Total Bilirubin AST ALT Alkaline Phosphata se Creatine Kinase Troponin T Baselin e 690 ng/L H* ng/L (0-10) Troponin T 120 Min lower [place] 578.8 ng/L H ng/L (0-10) Delta Troponin T -111.2 ABS# L ABS # (0-10) NT-Pro-B Natriuret Pep Total Protein Albumin Globulin Discharge Plan Discharge Patient Disposition: Admitted As Inpatient Admit Provider: Dong Foley Clinical Impression: Chest pain Qualifiers: Chest pain type: unspecified Qualified Code(s): R07.9 - Chest pain, unspecified Pulmonary edema Qualifiers: Chronicity: acute Qualified Code(s): J81.0 - Acute pulmonary edema Condition: Stable Coding Level of Care Code ED Regional Branch Manager for [facility] Fwd Exam Detailed
[2021-08-12] VITALS (46 sets, daily range): BP systolic 103–137; BP diastolic 47–67; PULSE 60–83; RESP 17–28; TEMP 36.4–37.4; O2SAT 86–94
--- NOTE | 2021-08-12 00:34 | PC.NURSE ---
Patient did not want scd's on as she was given lasix and will have to be getting up alot to urinate.
[2021-08-12] MEDS: heparin 5,000 unit/mL INJ 1 mL 5000 UNIT SUBCUT (00:59)
--- NOTE | 2021-08-12 01:11 | ECG_ITS ---
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 Measurements Intervals [place] Rate: 70 P: 58 CA: 135 QRS: 58 QRSD: 102 T: 69 QT: 422 QTc: 457 Interpretive Statements SINUS RHYTHM INCOMPLETE RIGHT BUNDLE BRANCH BLOCK [90+ ms QRS DURATION, TERMINAL R IN V1/V2, 40+ ms S IN I/aVL/V4/V5/V6] Compared to ECG 08/11/2021 21:09:11 T-wave abnormality no longer present Electronically Signed On 08-12-2021 16:48:57 CERTIFIED SCRUM MASTER by Joshua Lance M.D. [email or web address]
[2021-08-12 01:45] LABS: Basophils # 0.1 10^3/uL (0.0-0.1); Basophils % 0.6 %; Eosinophils % 0.2 %; Hematocrit 26.2 % (37.0-47.0); Hemoglobin 7.7 g/dL (11.5-15.3); Lymphocytes # 1.4 10^3/uL (0.8-4.8); Lymphocytes % 12.8 %; Mean Corpuscular HGB Conc 29.4 g/dL (30.0-36.0); Mean Corpuscular Hemoglobin 29.5 pg (28.0-34.0); Mean Corpuscular Volume 100.4 fl (81-99); Mean Platelet Volume 11.2 fL (7.4-10.4); Monocytes # 0.8 10^3/uL (0.2-0.9); Monocytes % 7.6 %; Neutrophils # 8.53 10^3/uL (1.8-7.7); Neutrophils % 78.3 %; Nucleated Red Blood Cells % 0.2 %; Platelet Count 192 10^3/cmm (130-400); Red Blood Count 2.61 10^6/uL (4.1-5.3); White Blood Count 10.9 10^3/uL (4.0-10.0)
[2021-08-12 02:02] LABS: Anion Gap 14.6 (5-19); Blood Urea Nitrogen 13 mg/dL (8-23); Carbon Dioxide 26 mmol/L (22-29); Chloride 103 mmol/L (98-107); Glucose 106 mg/dL (65-115); Osmolality Calculated 291 mOsm/kg (285-295); Phosphorus 3.5 mg/dL (2.5-4.5); Potassium 3.6 mmol/L (3.5-5.1); Sodium 140 mmol/L (136-145)
[2021-08-12 02:08] LABS: NT Pro B Type Natriuretic Pept 3724 pg/mL (0-125)
[2021-08-12] MEDS: zolpidem 5 mg Tablet PO ×2 (03:01→21:44)
--- NOTE | 2021-08-12 03:11 | PC.NURSE ---
Patient admitted to floor at 0010. Unable to sleep and requested sleep medication. Patient teaching done as to possible daily sleepiness that may occur. Patient states that she has had the medication before and understands that she may be sleepy during the day.
[2021-08-12 05:11] LABS: Troponin 5 6HR 661.7 ng/L (0-10); Troponin 5 6HR Delta -28.3 ng/L (0-12)
--- NOTE | 2021-08-12 07:00 | USCV_ITS ---
Marilou Leiva Age: 75 Gender: F : 1945 Exam Date: 08/12/2021 06:16 Ordering Phys: Dong Foley MD Technologist: Exam Location: [facility] [place] Indication: NSTEMI BP: 134 / 82 HR: 69 Rhythm: Sinus Technical Quality: Adequate MEASUREMENTS (Male / Female) Normal Values 2D ECHO LV Diastolic Diameter PLAX 3.2 cm 4.2 - 5.9 / 3.9 - 5.3 cm LV Systolic Diameter PLAX 2.6 cm IVS Diastolic Thickness 1.0 cm 0.6 - 1.0 / 0.6 - 0.9 cm IVS Systolic Thickness 1.5 cm LVPW Diastolic Thickness 1.1 cm 0.6 - 1.0 / 0.6 - 0.9 cm LVPW Systolic Thickness 1.5 cm LVOT Diameter 2.1 cm LV Ejection Fraction 2D Teich 28.3 % LV Ejection Fraction MOD 2C 65.6 % LV Ejection Fraction 2C AL 65.3 % LA Diameter 3.1 cm LA Width 4.8 cm LA Height 5.8 cm RA Width 3.9 cm RA Height 5.4 cm Aorta at Sinotubular Diameter 2.7 cm DOPPLER AV Peak Velocity 140.0 cm/s LVOT Peak Velocity 115.0 cm/s AV Area Cont Eq vti 2.6 cm squared AV Area Cont Eq pk 2.8 cm squared MV Area PHT 5.0 cm squared Mitral E to A Ratio 1.4 MV E' Velocity 53.5 cm/s Mitral E to MV E' Ratio 10.7 Mitral E to LV E' Lateral Ratio 10.0 Mitral E to LV E' Septal Ratio 11.4 TR Peak Velocity 280.7 cm/s TR Peak Gradient 31.5 mmHg TV Peak E Velocity 126.0 cm/s Right Atrial Pressure 3.0 mmHg Pulmonary Artery Systolic Pressu 34.5 mmHg FINDINGS Left Ventricle Normal left ventricular size, systolic function and wall thickness. No diagnostic regional wall motion abnormality. Left ventricular ejection fraction is estimated at 60%. Normal diastolic function. Right Ventricle Normal right ventricular size and systolic function. Right ventricular systolic pressure 34.5 mmHg. Right Atrium Normal right atrial size. Left Atrium Mildly increased left atrial size. Mitral Valve Mildly thickened mitral valve. No mitral valve stenosis. Trace mitral valve regurgitation. Aortic Valve Structurally normal trileaflet aortic valve. No aortic valve stenosis. No aortic valve regurgitation. Tricuspid Valve Structurally normal tricuspid valve. Trace tricuspid valve regurgitation. Pulmonic Valve Pulmonic valve not well visualized. No pulmonary valve stenosis. Pericardium No pericardial effusion. Aorta Normal-sized aortic root CONCLUSIONS 1. Normal left ventricular size, systolic function and wall thickness. No diagnostic regional wall motion abnormality. Left ventricular ejection fraction is estimated at 60%. Normal diastolic function. 2. Normal right ventricular size and systolic function. 3. Pulmonary artery pressure estimated at 35 mmHg. 4. No significant change when compared to prior echocardiogram dated 08/05/2021. Jacqueline Alcantara MD (Electronically Signed) Final Date: 12 August 2021 13:15 S
--- NOTE | 2021-08-12 07:23 | PC.NURSE ---
Patient states she finally had some sleep. States minimal chest pressure to chest. Report given to oncoming nurse.
[2021-08-12] MEDS: aspirin 81 mg EC Tablet PO (08:15)
[2021-08-12] MEDS: pantoprazole DR 40 mg Tablet PO (08:15)
[2021-08-12] MEDS: fluoxetine 20 mg Capsule PO (08:16)
[2021-08-12] MEDS: lisinopril 5 mg Tablet PO ×2 (08:16→17:07)
[2021-08-12] MEDS: clopidogrel 75 mg Tablet PO (08:16)
--- NOTE | 2021-08-12 09:38 | PC.CHAP ---
Pastoral Care Encounter/Spiritual Assessment Type of Contact [] Declined ecologist visit [] Patient/Family/Request visit [] Outpatient visit [] Follow-up visit [] Physician referral [] Code/Alert [x] Routine visit [] Staff referral [] Actively dying [] Patient sleeping [x] Family support [] [] Out of room [] Palliative care [] [] Receiving care in room [] Pre-surgical visit [] Trauma [] Long length of stay [] ICU visit [] Other: Relational/Emotional Strength [] Patient feels connected with others/family/visitors/staff [] Distress [] Loneliness/isolation [] Abandonment Spirituality of Patient [] Person of Larissa [] Attends Mandaen of their Larissa [] Believes in Prayer [] Reads Bible or Oriental Orthodox materials [] There are Spiritual issues to be addressed Kier Pleater Interventions [x] Prayer [x] Active listening [x] Non-anxious presence [x] Spiritual/emotional support [] Crisis/trauma care [] Spiritual counseling [] Bereavement support [] Provided bereavement packet [] Provided Bible/devotional materials [] Provided toy/stuffed animal, coloring book to patient or family member [] Provided Communion [] Anointing/[place] [] Salvation [x] Completed spiritual assessment [] Other: Impact on Illness or Injury [] Angry [] Fearful [] Anxious [] Often cries [] Exhaustion [] Unable to work [] Unable to attend nondenominational [] Unable to walk/stand [] Unable to read [] Unable to drive [] Unable to eat/drink [] Unable to sleep [] Unable to be with family [] Patient intubated [] Other: Summary patient was in hospital last week... same issue reoccurred..offered to set with her if need be-- she can have stafff call... Time spent with patient 10 min
--- NOTE | 2021-08-12 10:04 | P.CONIM_ITS ---
Providers/Reason For Consult Consulting Physician/Specialty*: Cardiology Reason for Consult*: Abnormal cardiac markers, chest pain Attending Physician: Aster Olivas MD Primary Care Provider: Dax Anthony History of Present Illness History of Present Illness Marilou Leiva is a 75 year old female past medical history significant for autoimmune hemolytic anemia for acute coronary syndrome underwent coronary angiogram few days ago noted to have significant more than 90% ostial circumflex lesion. It was treated with single drug-eluting stent. Good angiographic result was achieved. Patient was loaded with Plavix. She was discharged next day according to the patient for the past few days she started having severe diarrhea and was not able to keep things down. Day before yesterday she started noticing worsening of shortness of breath and chest pressure along with chest pain on deep inspiration it is the reason she came to emergency room. Her troponin was elevated at 600 BNP was more than 3700. She was given IV Lasix and treated as per ACS protocol. Hemoglobin around 7.6 baseline is around 9.0 she denies any bleeding. We know that she has history of hemolytic anemia. Since she continues to have chest pressure and pain I will take her back to the [facility] look into the stent it is possible patient may not have absorbed the Plavix due to diarrhea would like to rule out stent thrombosis. Patient has been explained all risk benefit and alternative for the procedure she understand risk for urgent emergent bypass bleeding stroke transfusion hematoma infection contrast-induced nephropathy arrhythmia and . She would like to proceed with it. I will also type and cross match 2 units of packed red blood cells if required below 7.0 I will transfuse Review of Systems General: Reports: 10 or more systems reviewed and unremarkable except in HPI and below Const: Denies: fever(s) or diaphoresis Eyes: Denies: change in vision Card: Reports: chest pain Resp: Reports: dyspnea; Denies: productive cough or non-productive cough GI: Reports: nausea and diarrhea; Denies: abdominal pain or vomiting Meds/Allergies Home Medications and Allergies Home Medications Medication Instructions Recorded Confirmed Last Taken Type Eye Multivitamin 1 tab PO DAILY 08/05/21 08/11/21 08/04/21 History aspirin 81 mg PO DAILY 08/05/21 08/11/21 08/04/21 History fluoxetine 20 mg PO DAILY 08/05/21 08/11/21 08/04/21 History folic acid 1 mg PO DAILY 08/05/21 08/11/21 08/04/21 History magnesium citrate 100 mg PO DAILY 08/05/21 08/11/21 08/04/21 History atorvastatin 40 mg PO BEDTIME #30 tab 08/07/21 08/11/21 Unknown Rx clopidogrel 75 mg PO DAILY #30 tab 08/07/21 08/11/21 Unknown Rx lisinopril 5 mg PO BID #60 tab 08/07/21 08/11/21 Unknown Rx metoprolol tartrate 12.5 mg PO BID@0900,2100 #30 tab 08/07/21 08/11/21 Unknown Rx pantoprazole 40 mg PO DAILY #30 tab 08/07/21 08/11/21 Unknown Rx dexamethasone [Decadron] 0.5 mg PO DAILY #3 tab 08/13/21 Unknown Rx polysaccharide iron complex 150 mg PO Q48H 30 Days #16 cap 08/13/21 Unknown Rx [Ferrex 150] Allergies Allergy/AdvReac Type Severity Reaction Status Date / Time Tetracyclines Allergy Unknown Verified 08/11/21 19:19 Current Medications Current Medications Generic Name Dose Route Start Last Admin Trade Name Juancarlosq PRN Reason Stop Dose Admin Aspirin 81 mg 08/12/21 09:00 08/12/21 08:15 Aspirin 81 Mg Ec Tablet PO 81 mg DAILY MAYITO Administration Clopidogrel Bisulfate 75 mg 08/12/21 09:00 08/12/21 08:16 Clopidogrel 75 Mg Tablet PO 75 mg DAILY MAYITO Administration Fluoxetine HCl 20 mg 08/12/21 09:00 08/12/21 08:16 Fluoxetine 20 Mg Capsule PO 20 mg DAILY MAYITO Administration Heparin Sodium (Porcine) 5,000 unit 08/12/21 00:15 08/12/21 00:59 Heparin 5,000 Unit/Ml Inj 1 Ml SUBCUT 5,000 unit Q12H MAYITO Administration Lisinopril 5 mg 08/12/21 09:00 08/12/21 08:16 Lisinopril 5 Mg Tablet PO 5 mg BID MAYITO Administration Non-Formulary Medication 100 mg 08/12/21 09:00 08/12/21 08:16 Magnesium Citrate PO Not Given DAILY MAYITO Pantoprazole Sodium 40 mg 08/12/21 09:00 08/12/21 08:[address] 40 Mg Tablet PO 40 mg DAILY MAYITO Administration Zolpidem Tartrate 5 mg 08/12/21 00:02 08/12/21 03:01 Zolpidem 5 Mg Tablet PO 5 mg BEDTIME PRN Administration INSOMNIA PFSH Acute PFSH: Medical History (Updated 08/12/21 @ 12:16 by Aster Olivas MD) Arrhythmia (~2011) Paroxysmal, likely atrial fibrillation, identified on eval for possible kidney donor, then not captured again, not been on rate control agents, other treatment or anticoagulation 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 Recommended to have yearly CBC, retic, LDH, CMP Depression 1 para 1 History of stress test (11/2018) normal myocardia perfusion imaging, EF 66% Hyperlipidemia NSTEMI (non-ST elevated myocardial infarction) Surgical History (Updated 08/05/21 @ 02:01 by Aleida Zhao MD) History of tubal ligation Family History (Updated 08/05/21 @ 02:01 by Aleida Zhao MD) Father CAD (coronary artery disease) Social History (Updated 08/05/21 @ 02:02 by Aleida Zhao MD) Smoking and tobacco status: never smoked Alcohol intake: never Lives independently: Yes Household members: spouse Marital status: Number of children: 1 Female Reproductive History: Date of last menstrual period: 08/12/21 Vitals/I&O/Wt Last Vital Signs Temp 97.9 F 08/12/21 07:33 Pulse 71 08/12/21 07:32 Resp 21 H 08/12/21 07:32 BP 116/59 08/12/21 07:32 Pulse Ox 91 08/12/21 07:32 08/11/21 08/12/21 08/12/21 22:59 06:59 14:59 Intake Total 240 / 240 360 / 360 Balance 240 / 240 360 / 360 Weight last 48 hrs Weight 226 lb Physical Exam Narrative: EXAM NARRATIVE: GENERAL: Patient is alert, awake and oriented x3. Slightly pale NECK: No jugular vein distension. HEENT: No cyanosis. No icterus. No pallor. HEART: Regular S1 and S2. No murmur, rub or gallop. LUNGS: Clear to auscultate bilaterally. ABDOMEN: Soft, nontender and nondistended. Positive bowel sounds. No guarding, rebound or tenderness. CENTRAL NERVOUS SYSTEM: Grossly nonfocal. EXTREMITIES: Lower extremities without edema bilaterally. A&P Assessment and plan (1) NSTEMI (non-ST elevated myocardial infarction): Patient has significantly high fifth generation troponin 600, she continues complaining of chest pressure and shortness of breath. Hemoglobin is 7.6 though. I may will transfuse her and I will ask for quick angiogram to make sure there is no stent thrombosis. Patient has been explained all risk benefit and already for the procedure she would like to proceed with it. We have type crossmatch 2 units Status: Acute (2) CHF exacerbation: Started on IV Lasix 40 mg twice a day appear to be stable, she is able to lay flat on the bed Status: Acute Qualifiers: Heart failure type: diastolic Qualified Code(s): I50.33 - Acute on chronic diastolic (congestive) heart failure (3) Autoimmune hemolytic anemia: Hemoglobin has dropped from 9.0-7.6. Could be dilutional, patient not complaining of any blood in the urine stool she has hemolytic anemia Status: Chronic (4) Hyperlipidemia: Will continue statin. Status: Chronic Qualifiers: Hyperlipidemia type: other hyperlipidemia Qualified Code(s): E78.49 - Other hyperlipidemia Consult Attestations Medical Necessity Statement: Patient require continuation hospitalization for above defined care for Coding Level of Care Code New Pt Acute Operations Manager for Chg Fwd Patient Type New Medical Decision Making Moderate Complexity Diagnoses NSTEMI (non-ST elevated myocardial infarction) I21.4 CHF exacerbation I50.33 Heart failure type: diastolic Autoimmune hemolytic anemia D59.10 Hyperlipidemia E78.49 Hyperlipidemia type: other hyperlipidemia
--- NOTE | 2021-08-12 10:21 | XACV_ITS ---
Exam Room: [facility] Ht: 173 cm Wt: 103 kg BSA: 2.26 m2 Gender: Female : 1945 Exam Priority: Routine Procedure(s): Procedure Description: Diagnostic procedure Procedure Description: Coronary Angiography CISCO, Sasha; Diagnostic Cath Status: Urgent Diagnostic Findings * No disease noted in the Left Main, Left Anterior Descending, Right, or Circumflex coronary arteries. * Coronary angiography shows right dominance. Conclusions 1. No disease noted in the Left Main, Left Anterior Descending, Right, or Circumflex coronary arteries. Recommendations * Continue current medical management and risk factor modification. Diagnostic RX Recommendation: medical therapy and/or counseling Clinical Evaluation EBL: 5mL-10mL Procedural Details Procedure Consent Obtained. Admit Source: In Patient. Hemodynamic formulas in Rest were re-calculated based on hemoglobin value from 08/12/2021 12:00:00 AM. Pre-Procedure Time Out. Identified patient by full name and date of as verbalized by the patient/guarantor. Does the consent match the physician's order: Yes. Accurate & Complete Informed Consent: Yes. Inpatient/Outpatient History & Physical on Chart: Yes. Visualize and Verify Site with Patient/Guarantor: N/A. Relevant Radiology Images available: N/A. Pre-op teaching completed and patient verbalized understanding. The risks, benefits, and alternatives of sedation and/or procedure were discussed by physician. The patient agrees to continue. Procedure started. [facility] Clinical Fraility Score: 5: Mildly Frail. 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 Chest Pain Symptom Assessment: Atypical Angina. Correct patient, site and procedure confirmed by cath team. Current diagnosis: NSTEMI, CHF. PERRLA. Strong, equal hand credit risk specialist bilaterally. Lungs clear x 5 lobes. IV Site on Arrival: 18 gauge in the right anticubital. IV Fluids: 0.9% NaCl at KVO. 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 Pre Procedural Pulses: right radial was 2+. Oxygen started at 2liters/min via nasal canula. right radial was prepped with chloroprep then draped in the usual sterile fashion. right groin was prepped with chloroprep then draped in the usual sterile fashion. Physician notified. Baseline sample Acquired. HR: 84 BPM. Physician arrived. Physician scrubbed in. Immediate Pre-Procedure Time Out. Correct Patient: Yes; Correct Procedure: Yes; Correct Site: Yes; Correct Patient Position: Yes; Correct Supplies: Yes; Dried Flammable Prep: Yes; Blood Products Available: Yes;. Lidocaine 1% infiltrated to the right radial. Arterial access obtained. A 5 singaporean TIG catheter in over wire. Multiple views taken of left coronary artery. Catheter redirected to the RCA. Multiple views taken of right coronary artery. A TR Band was successful obtaining hemostatsis at the Right Radial artery insertion site. Post Procedure: Pulses reassessed and unchanged. PERRLA. Strong, equal hand credit risk specialist bilaterally. No VTE prophylaxis required. Medication's Wasted: Lidocaine 1% = 18 mL. Medication's Wasted: Nitro = 49.8 mg. Medication's Wasted: Heparin = 1000 u. Total IV fluids: 15 mL. Complications: none. Estimated blood loss: 5mL-10mL. Procedure completed. Post-op diagnosis: No Significant Stenosis, Patent previously placed stent. Patient transferred by wheelchair to 1st floor. Vital chart was stopped. Access Site Site: Right Radial artery Sheath Size: 6 Fr Hemostasis Method: TR Band Hemostasis Success: Successful Procedure Medications Start: 12:11 PM Stop: 12:11 PM Medication: Versed Amount: 1 mg Route: I.V. Start: 12:11 PM Stop: 12:11 PM Medication: Fentanyl Amount: 50 mcg Route: I.V. Start: 12:12 PM Stop: 12:12 PM Medication: Nitrogylcerin Amount: 200 mcg Route: I.A. Start: 12:14 PM Stop: 12:14 PM Medication: Heparin Amount: 5000 units Route: I.V. I, the attending physician, have reviewed and verified all procedure medications. Yes, all medications given per verbal order History/Risk Factors Hypertension: Yes Dyslipidemia: Yes Peripheral Arterial Disease (PAD): No Myocardial Infarction (DC): No Obesity: Yes Renal Disease: No Tobacco Use: Never Prior Interventions PCI: No CABG: No Valve Surgery: No Report Signatures Finalized by Aster Baez MD on 08/26/2021 11:48 PM
[2021-08-12 10:26] LABS: Hematocrit 25.6 % (37.0-47.0); Hemoglobin 7.6 g/dL (11.5-15.3)
[2021-08-12] MEDS: FUROsemide 10 mg/mL SDV 4mL 40 MG IVP ×2 (10:47→23:25)
--- NOTE | 2021-08-12 12:03 | P.HPUD_ITS ---
Surgery/Procedure H&P Update DATE OF PROCEDURE: August 12, 2021 DATE H&P PERFORMED: 08/12/21 H&P UPDATE INFORMATION: I have reviewed H&P completed within last 30 days and I have examined patient prior to procedure PREOP DIAGNOSIS: Non-ST elevation MT PATIENT REASSESSED PRIOR TO SEDATION, WITH NO CHANGE NOTED: Yes PHYSICAL EXAM: clear to auscultation bilaterally AIRWAY EVAL/ANESTHESIA PLAN: ASA II, Risks, benefits & alternatives of sedation and/or procedure discussed and Patient agrees to continue as planned ADDITIONAL INFORMATION: Patient continues to have chest pain which is active not relieving, worsening of symptoms cardiac markers would like to quickly look into stent to rule out stent thrombosis. I will take her to the [facility]. Patient has been explained all risk benefit and already for the procedure she would like to proceed with it.
--- NOTE | 2021-08-12 12:11 | PM.PN ---
Subjective Subjective: Interval history: Patient was complaining of chest pain which she described as heaviness, chest pain intensity has decreased since 3 AM when she got sleeping aid however chest pain reoccurred at 8 AM, Dr. Galo evaluated and decided for angiogram considering high troponin and active chest pain Requested H&H to rule out lab letter for anemia, patient has history of autoimmune hemolytic anemia however she is not on steroids, bilirubin is not high, she is nonjaundiced no active bleeding she is denying hematochezia or melanotic stool Dr. Baez aware about anemia history Vitals/I&O/Wt Last Vital Signs Temp 99.4 F 08/12/21 11:14 Pulse 75 08/12/21 11:14 Resp 26 H 08/12/21 11:14 BP 119/67 08/12/21 11:14 Pulse Ox 91 08/12/21 11:17 08/11/21 08/12/21 08/12/21 22:59 06:59 14:59 Intake Total 240 / 240 360 / 360 Balance 240 / 240 360 / 360 Weight last 48 hrs Weight 102.512 kg Physical Exam Narrative: EXAM NARRATIVE: Patient was laying supine Reproducible chest pain No active shortness of breath Saturating well on room air Hemodynamically stable Sinus rhythm Abdomen soft, distended, nontender, no signs of peritonitis Lower extremity no edema Data : 08/12/21 10:05 08/12/21 01:30 A&P Assessment and plan (1) NSTEMI (non-ST elevated myocardial infarction): Status: Acute (2) Unstable angina: Status: Acute (3) Diarrhea: Status: Acute (4) Pulmonary edema: Status: Acute Qualifiers: Chronicity: acute Qualified Code(s): J81.0 - Acute pulmonary edema (5) CHF exacerbation: Status: Acute Qualifiers: Heart failure type: diastolic Qualified Code(s): I50.33 - Acute on chronic diastolic (congestive) heart failure (6) Autoimmune hemolytic anemia: Status: Chronic Additional A&P Information Unstable angina/Non-STEMI: Continue aspirin Plavix, Holding beta-kaya for now with active CHF exacerbation, plan for angiogram today Acute on chronic anemia no active GI blood loss, patient has not noticed melena or hematochezia, she does carry history of autoimmune hematuria anemia which was treated with iron and folic acid supplementation, currently no active signs of jaundice, bilirubin normal, will check LDH and Joseluis test Not a candidate of anticoagulation considering ongoing anemia Histology Supervisor Dr. Baez is aware Diarrhea: Patient had semisolid loose stool, no loose stool since admission New onset CHF exacerbation: Requested echo, hemodynamically stable, na?ve to Lasix, currently on 40mg IV Lasix every 12 hours N.p.o., cardiac diet after the angiogram Full code DVT prophylaxis: Heparin, which I put on hold for now Attestations Medical Necessity Statement*: Angiogram today Time Spent in Patient Care: 16 - 35 minutes Coding Level of Care Code Acute Reporting Process Consultant for Chg Fwd Diagnoses NSTEMI (non-ST elevated myocardial infarction) I21.4 Unstable angina I20.0 Diarrhea R19.7 Pulmonary edema J81.0 Chronicity: acute CHF exacerbation I50.33 Heart failure type: diastolic Autoimmune hemolytic anemia D59.10
[2021-08-12 13:09] LABS: Iron 25 ug/dL (37-145); Lactate Dehydrogenase 289 U/L (135-214); Total Bilirubin 0.6 mg/dL (0.15-1.2)
[2021-08-12 13:27] LABS: Folate Level 19.9 ng/mL (4.8-37.3)
[2021-08-12] MEDS: acetaminophen 325 mg Tablet 650 MG PO (15:34)
--- NOTE | 2021-08-12 16:24 | PC.NURSE ---
TR band taken off at this time. No bleeding or hematoma noted at this time. Patient tolerated well. 4x4 and tegaderm applied to right wrist. Will continue to monitor.
[2021-08-12 19:38] LABS: Reticulocyte % 5.2 % (0.5-2.0)
[2021-08-12 20:07] LABS: Iron 26 ug/dL (37-145)
[2021-08-12 20:22] LABS: Vitamin B12 453 pg/mL (232-1245)
[2021-08-12] MEDS: metoprolol tartrate 25 mg Tablet 12.5 MG PO (21:39)
[2021-08-12] MEDS: atorvastatin 40 mg Tablet PO (21:40)
--- NOTE | 2021-08-12 23:17 | PC.NURSE ---
Spoke to Dr. Foley Patient post cath today and will hold midnight heparin dose and resume tomorrow.
[2021-08-13] VITALS (12 sets, daily range): BP systolic 119–151; BP diastolic 54–71; PULSE 65–80; RESP 16–22; TEMP 35.6–37.1; O2SAT 92–96
[2021-08-13 03:58] LABS: Basophils % 0.2 %; Hematocrit 27.2 % (37.0-47.0); Hemoglobin 7.7 g/dL (11.5-15.3); Lymphocytes # 0.5 10^3/uL (0.8-4.8); Lymphocytes % 5.2 %; Mean Corpuscular HGB Conc 28.3 g/dL (30.0-36.0); Mean Corpuscular Hemoglobin 28.7 pg (28.0-34.0); Mean Corpuscular Volume 101.5 fl (81-99); Mean Platelet Volume 11.5 fL (7.4-10.4); Monocytes # 0.2 10^3/uL (0.2-0.9); Monocytes % 2.1 %; Neutrophils # 9.46 10^3/uL (1.8-7.7); Neutrophils % 91.8 %; Nucleated Red Blood Cells % 0 %; Platelet Count 183 10^3/cmm (130-400); Red Blood Count 2.68 10^6/uL (4.1-5.3); White Blood Count 10.3 10^3/uL (4.0-10.0)
[2021-08-13 04:31] LABS: Anion Gap 14.7 (5-19); Blood Urea Nitrogen 20 mg/dL (8-23); Calcium 8.1 mg/dL (8.5-10.5); Carbon Dioxide 25 mmol/L (22-29); Chloride 104 mmol/L (98-107); Glucose 148 mg/dL (65-115); Osmolality Calculated 295 mOsm/kg (285-295); Potassium 3.7 mmol/L (3.5-5.1); Sodium 140 mmol/L (136-145)
[2021-08-13 07:46] LABS: Ferritin 572 ng/mL (15-150); Lactate Dehydrogenase 283 U/L (135-214)
[2021-08-13] MEDS: FUROsemide 10 mg/mL SDV 4mL 40 MG IVP (09:38)
[2021-08-13] MEDS: lisinopril 5 mg Tablet PO (09:39)
[2021-08-13] MEDS: folic acid 1 mg Tablet PO (09:39)
[2021-08-13] MEDS: pantoprazole DR 40 mg Tablet PO (09:39)
[2021-08-13] MEDS: fluoxetine 20 mg Capsule PO (09:39)
[2021-08-13] MEDS: metoprolol tartrate 25 mg Tablet 12.5 MG PO (09:39)
[2021-08-13] MEDS: clopidogrel 75 mg Tablet PO (09:40)
[2021-08-13] MEDS: aspirin 81 mg EC Tablet PO (09:40)
--- NOTE | 2021-08-13 11:08 | PM.DCS ---
Discharge Providers Date of Admission: 08/12/21 17:40 Date of Discharge: August 13, 2021 Attending Provider at Admission: Dong Foley Attending Provider at Discharge: Aster Olivas MD Primary Care Provider: Dax Anthony Diagnoses at Discharge Discharge Diagnosis (1) NSTEMI (non-ST elevated myocardial infarction): Status: Acute (2) Unstable angina: Status: Acute (3) Diarrhea: Status: Acute (4) Pulmonary edema: Status: Acute Qualifiers: Chronicity: acute Qualified Code(s): J81.0 - Acute pulmonary edema (5) CHF exacerbation: Status: Acute Qualifiers: Heart failure type: diastolic Qualified Code(s): I50.33 - Acute on chronic diastolic (congestive) heart failure (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 Recommended to have yearly CBC, retic, LDH, CMP Reason for Visit Reason for Visit: CP Hospital Course Hospital Course 75-year-old female who was admitted for management and evaluation of chest pain and shortness of breath. She was diagnosed with new onset CHF exacerbation. Considering recent stent placement cardiology was involved, she went for angiogram, her stents are patent, she was found to have autoimmune hemolytic anemia, I requested Joseluis test haptoglobin and LDH. She has positive antibodies. Considering coronary artery disease goal hemoglobin above 8, she will be given 1 unit of PRBC, before transfusion she was given Benadryl and Decadron. I have given her a prescription for CBC to be done in next 3 days. Considering iron deficiency anemia she will need colonoscopy I have given Dr. Barnhart's referral as well. She already takes folic acid. Her B12 and folic acid level normal, iron is low. No active hemolytic episodes noted normal bilirubin patient is not icteric. Hemodynamically stable. She will be discharged with Decadron 3 day regimen. Physical Exam Narrative: EXAM NARRATIVE: Patient was laying supine Reproducible chest pain No active shortness of breath Saturating well on room air Hemodynamically stable Sinus rhythm Abdomen soft, distended, nontender, no signs of peritonitis Lower extremity no edema Discharge Data Data Completed and Pending: Completed Studies During Hospitalization Category Date Time Status XR chest 1V lucy ble [id number] Stat Exams 11/07/21 19:11 Completed CV. echo complete * [id number] Routine Ultrasound 08/12/21 07:00 Completed Pending at discharge Category Date Time Status [employer]ATE request for service Routin e Exams 08/12/21 10:21 Taken Leukocyte Reduced RBC Routine Lab 08/12/21 10:05 Results Type and Screen S tat Lab 08/12/21 10:05 Results Labs from last 24 hours 08/13/21 08/13/21 08/13/21 03:31 03:31 03:31 WBC 10.3 H RBC 2.68 L Hgb 7.7 L Hct 27.2 L MCV 101.5 H MCH 28.7 MCHC 28.3 L RDW 15.0 Plt Count 183 MPV 11.5 H Neut % (Auto) 91.8 Lymph % (Auto) 5.2 Sabine % (Auto) 2.1 Eos % (Auto) 0.0 Baso % (Auto) 0.2 Reticulocyte % (Au to) Neut # (Auto) 9.46 H Lymph # (Auto) 0.5 L Sabine # (Auto) 0.2 Eos # (Auto) 0.0 Baso # (Auto) 0.0 Nucleated RBC % (a uto) 0 Nucleated RBCs # 0.0 Haptoglobin 137.0 Sodium 140 Potassium 3.7 Chloride 104 Carbon Dioxide 25 Anion Gap 14.7 BUN 20 Creatinine 0.9 GFR Calculation Not Reportable Glucose 148 H Calculated Osmolal ity 295 Calcium 8.1 L Iron Ferritin 572 H Total Bilirubin Direct Bilirubin Indirect Bilirubin Lactate Dehydrogen ase 283 H Vitamin B12 Folate Blood Type Rho(D) Type Antibody Screen DEE, IgG Interpret DEE, Poly Interpre t DEE, Complement In terp Crossmatch 08/12/21 08/12/21 08/12/21 10:05 10:05 10:05 WBC RBC Hgb Hct MCV MCH MCHC RDW Plt Count MPV Neut % (Auto) Lymph % (Auto) Sabine % (Auto) Eos % (Auto) Baso % (Auto) Reticulocyte % (Au to) 5.2 H Neut # (Auto) Lymph # (Auto) Sabine # (Auto) Eos # (Auto) Baso # (Auto) Nucleated RBC % (a uto) Nucleated RBCs # Haptoglobin Sodium Potassium Chloride Carbon Dioxide Anion Gap BUN Creatinine GFR Calculation Glucose Calculated Osmolal ity Calcium Iron Ferritin Total Bilirubin Direct Bilirubin Indirect Bilirubin Lactate Dehydrogen ase Vitamin B12 Folate Blood Type A Positive Rho(D) Type Positive Antibody Screen Negative DEE, IgG Interpret Negative DEE, Poly Interpre t Pos-polyspecific DEE, Complement In terp Pos-complement Crossmatch See Detail 08/12/21 08/12/21 08/12/21 01:50 01:30 01:30 WBC RBC Hgb Hct MCV MCH MCHC RDW Plt Count MPV Neut % (Auto) Lymph % (Auto) Sabine % (Auto) Eos % (Auto) Baso % (Auto) Reticulocyte % (Au to) Neut # (Auto) Lymph # (Auto) Sabine # (Auto) Eos # (Auto) Baso # (Auto) Nucleated RBC % (a uto) Nucleated RBCs # Haptoglobin 114.0 Sodium Potassium Chloride Carbon Dioxide Anion Gap BUN Creatinine GFR Calculation Glucose Calculated Osmolal ity Calcium Iron 26 L Ferritin Total Bilirubin 0.6 Direct Bilirubin 0.20 Indirect Bilirubin 0.40 Lactate Dehydrogen ase Vitamin B12 453 Folate 19.9 Blood Type Rho(D) Type Antibody Screen DEE, IgG Interpret DEE, Poly Interpre t DEE, Complement In terp Crossmatch 08/12/21 01:30 WBC RBC Hgb Hct MCV MCH MCHC RDW Plt Count MPV Neut % (Auto) Lymph % (Auto) Sabine % (Auto) Eos % (Auto) Baso % (Auto) Reticulocyte % (Au to) Neut # (Auto) Lymph # (Auto) Sabine # (Auto) Eos # (Auto) Baso # (Auto) Nucleated RBC % (a uto) Nucleated RBCs # Haptoglobin Sodium Potassium Chloride Carbon Dioxide Anion Gap BUN Creatinine GFR Calculation Glucose Calculated Osmolal ity Calcium Iron 25 L Ferritin Total Bilirubin Direct Bilirubin Indirect Bilirubin Lactate Dehydrogen ase 289 H Vitamin B12 Folate Blood Type Rho(D) Type Antibody Screen DEE, IgG Interpret DEE, Poly Interpre t DEE, Complement In terp Crossmatch Vitals: Last Vital Signs Temp 97.2 F L 08/13/21 03:55 Pulse 69 08/13/21 04:06 Resp 20 H 08/13/21 03:57 BP 120/66 08/13/21 03:57 Pulse Ox 93 08/13/21 03:57 Discharge Plan Discharge Patient Disposition: Home Condition: Stable Prescriptions: New Ferrex 150 150 mg iron Capsule 150 mg PO Q48H 30 Days Qty: 16 RF: 3 Decadron 0.5 mg tablet 0.5 mg PO DAILY Qty: 3 RF: 0 Continued folic acid 1 mg tablet 1 mg PO DAILY RF: 0 fluoxetine 20 mg capsule 20 mg PO DAILY RF: 0 aspirin 81 mg Tablet,Delayed Release (Dr/Ec) 81 mg PO DAILY RF: 0 Eye Multivitamin 7,160 unit- 113 mg-100 unit Tablet 1 tab PO DAILY RF: 0 magnesium citrate 100 mg Capsule 100 mg PO DAILY RF: 0 atorvastatin 40 mg Tablet 40 mg PO BEDTIME Qty: 30 RF: 0 clopidogrel 75 mg Tablet 75 mg PO DAILY Qty: 30 RF: 11 lisinopril 5 mg Tablet 5 mg PO BID Qty: 60 RF: 0 metoprolol tartrate 25 mg Tablet 12.5 mg PO BID@0900,2100 Qty: 30 RF: 0 pantoprazole 40 mg Tablet,Delayed Release (Dr/Ec) 40 mg PO DAILY Qty: 30 RF: 0 Discharge Orders: Discharge Order (Routine); Ordered 08/13/21 Ordered By: Aster Olivas Other Ambulatory Orders: Complete Blood Count w/Auto (Routine) Timeframe: 3 Days Location: Determined by Patient Ordered By: Aster Olivas Referrals: Baljit Barnhart MD [Physician] - 1 month (iron def anemia needs screening colonoscopy) Dax Anthony [Primary Care Provider] - 2 weeks Discharge Diet: Cardiac Discharge Activity: Increase activity as tolerated Patient Instructions: Dexamethasone (By mouth), Vitamin B/Iron/Vitamin C (By mouth), Heart Attack (DC), CHF Stoplight, Chest Pain Stoplight, Opioid Safety Discharge Attestations Time Spent in Discharge Care*: less than 30 min Quality Metrics Clinical Quality Measures During this hospital stay, did patient experience: None Coding Level of Care Code Acute Chg FW DC note Diagnoses NSTEMI (non-ST elevated myocardial infarction) I21.4 Unstable angina I20.0 Diarrhea R19.7 Pulmonary edema J81.0 Chronicity: acute CHF exacerbation I50.33 Heart failure type: diastolic Autoimmune hemolytic anemia D59.10
[2021-08-13] MEDS: diphenhydrAMINE 50 mg/mL SDV 1mL 25 MG IVP (11:50)
[2021-08-13] MEDS: dexamethasone 10 mg/mL INJ IVP (11:51)
[2021-08-13 11:55] LABS: Iron 19 ug/dL (37-145); Percent Saturation 10.6 % (20-50); Total Iron Binding Capacity 179 mcg/dl; Unsaturated Iron Binding 160 ug/dL (112-347)
[2021-08-13 12:46] LABS: Ferritin 5 ng/mL (15-150)
[2021-08-13 16:40] LABS: Hemoglobin 9.6 g/dL (11.5-15.3)
[2021-08-13 17:47] LABS: LAB Peripheral Smear Sent for Review
--- NOTE | 2021-08-13 18:46 | PM.PN ---
Subjective Subjective: Interval history: Denies any chest pain says feeling better. Vitals/I&O/Wt Last Vital Signs Temp 96.1 F L 08/13/21 16:32 Pulse 80 08/13/21 16:32 Resp 18 08/13/21 16:32 BP 150/70 08/13/21 16:32 Pulse Ox 96 08/13/21 16:32 08/13/21 08/13/21 08/13/21 06:59 14:59 22:59 Intake Total 120 / 1020 0 / 0 350 / 350 Output Total 750 / 750 Balance -630 / 270 0 / 0 350 / 350 Weight last 48 hrs Weight 226 lb Physical Exam Narrative: EXAM NARRATIVE: GENERAL: Patient is alert, awake and oriented x3. NECK: No jugular vein distension. HEENT: No cyanosis. No icterus. No pallor. HEART: Regular S1 and S2. No murmur, rub or gallop. LUNGS: Clear to auscultate bilaterally. ABDOMEN: Soft, nontender and nondistended. Positive bowel sounds. No guarding, rebound or tenderness. CENTRAL NERVOUS SYSTEM: Grossly nonfocal. EXTREMITIES: Lower extremities without edema bilaterally. Resp: COMMON NORMALS: clear to auscultation bilaterally AUSCULTATION: clear to auscultation bilaterally Data : 08/13/21 16:23 08/13/21 03:31 A&P Assessment and plan (1) NSTEMI (non-ST elevated myocardial infarction): Patient underwent coronary angiogram showed patent previously placed stent and no significant stenosis. Most likely troponin was from the prior admission. Continue medical management continue Plavix aspirin Status: Acute (2) CHF exacerbation: Continues to diurese, later from tomorrow switch to p.o. 40 mg in the morning along with 20 meq daily Status: Acute Qualifiers: Heart failure type: diastolic Qualified Code(s): I50.33 - Acute on chronic diastolic (congestive) heart failure (3) Autoimmune hemolytic anemia: As per medicine Status: Chronic (4) Hyperlipidemia: Will continue statin. Status: Chronic Qualifiers: Hyperlipidemia type: other hyperlipidemia Qualified Code(s): E78.49 - Other hyperlipidemia Attestations Medical Necessity Statement*: Patient require continuation hospitalization for above defined care. 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
--- NOTE | 2021-08-13 20:00 | PC.NURSE ---
1 unit prbc's infused w/o difficulty.no s/sxs transfusion reaction or fluid overload observed.repeat h and h obtained and periph smear as ordered.dischaarge instructions given and explained.pt verb understanding of instructions.discharge at 1700 via w/c to exit.pt's spouse to drive pt home.
== END 2021-08-13 17:00 | disposition home or self-care (01) | DRG 280 ==
LOC: ER 23:27 → CSU 23:46
PROVIDERS: Internal Medicine Cardiovascular Disease; Admitting Provider Internal Medicine; Emergency Provider Emergency Medicine; PCP Family Medicine; Visit Provider Internal Medicine
PROC: B2111ZZ Fluoroscopy of Multiple Coronary Arteries using Low Osmolar Contrast (ICD-10-PCS; principal; 2021-08-12 10:30)
DX: I11.0 Hypertensive heart disease with heart failure (principal); I50.33 Acute on chronic diastolic (congestive) heart failure; I21.4 Non-ST elevation (NSTEMI) myocardial infarction; D59.10 Autoimmune hemolytic anemia, unspecified; I25.110 Atherosclerotic heart disease of native coronary artery with unstable angina pectoris; D50.9 Iron deficiency anemia, unspecified; E78.5 Hyperlipidemia, unspecified; I48.0 Paroxysmal atrial fibrillation; F32.A Depression, unspecified; R19.7 Diarrhea, unspecified; D72.829 Elevated white blood cell count, unspecified; Z95.5 Presence of coronary angioplasty implant and graft; Z79.82 Long term (current) use of aspirin; Z79.02 Long term (current) use of antithrombotics/antiplatelets; Z82.49 Family history of ischemic heart disease and other diseases of the circulatory system
CPT/HCPCS: 36415; 36430; 71045; 80048; 80053; 80500; 82247; 82248; 82550; 82607; 82728; 82746; 83010; 83540; 83550; 83615; 83735; 83880; 84100; 84484; 85014; 85018; 85025; 85045; 85610; 85730; 86850; 86880; 86900; 86920; 93005; 93306; 96372; 96374; 96375; 99285; C1769; C1887; C1894; G0378; J1100; J1200; J1644; J1940; J2250; J2270; J2405; J2920; J3010; J3490; J7030; P9016; Q9967

== ENCOUNTER 2021-08-27 09:30 | Emergency (ER) | payer MEDICARE, BC, SELFPAY ==
[2021-08-27 09:34] VITALS: BP 152/75; PULSE 65; TEMP 37; O2SAT 94; BMI 33.7
--- NOTE | 2021-08-27 09:34 | XRR_ITS ---
PROCEDURE INFORMATION: Exam: XR Chest Exam date and time: 08/27/2021 9:34 AM Age: 75 years old Clinical indication: Cough and dyspnea; Additional info: Dyspnea/cough TECHNIQUE: Imaging protocol: XR of the chest. Views: 1 view. COMPARISON: CR (CHEST, ) 08/11/2021 8:26 PM FINDINGS: Lungs: Hyperinflation and interstitial prominence. Interval resolution of right basilar airspace disease. Pleural spaces: Worsening left basilar airspace disease and pleural effusion. Heart/Mediastinum: No cardiomegaly. Bones/joints: Osteopenia and degenerative change. XR/XR chest 1V portable [id number] IMPRESSION: 1. Interval resolution of right basilar airspace disease. 2. Worsening left basilar airspace disease and pleural effusion. Radiation Dose CTDIVOL = (mGy): DLP = (mGy-cm)
--- NOTE | 2021-08-27 09:42 | ECG_ITS ---
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 Measurements Intervals [place] Rate: 62 P: 58 MS: 140 QRS: 25 QRSD: 112 T: 113 QT: 452 QTc: 462 Interpretive Statements SINUS RHYTHM INCOMPLETE RIGHT BUNDLE BRANCH BLOCK [90+ ms QRS DURATION, TERMINAL R IN V1/V2, 40+ ms S IN I/aVL/V4/V5/V6] NONSPECIFIC T-WAVE ABNORMALITY Compared to ECG 08/12/2021 05:54:56 T-wave abnormality now present Electronically Signed On 08-28-2021 17:40:18 REBAR FABRICATOR by Joshua Lance M.D. [id number]
--- NOTE | 2021-08-27 09:43 | W.ED.CHESTPA ---
HPI - Chest Pain General: Chief Complaint: Dizziness Stated Complaint: DIZZY/ CHEST PRESSURE Time Seen by Provider: 08/27/21 09:32 History of Present Illness: HPI narrative: 75-year-old female presents emergency room with dizziness and chest discomfort. States it began overnight when she got up this morning she was lightheaded dizzy felt like she could not stand. Few weeks ago she had angiography was a stent placed post stent she had some congestive heart failure. She denies any orthopnea now. She told the nurse she had some chest pressure but when I talked to her she denies any chest discomfort. The remainder of her review of systems was essentially negative other than just not feeling well. She denies any myalgias she did recently been started on atorvastatin but quit that of couple of days ago. She denies any fever sweats chills diarrhea no dysuria urgency or frequency no discolored urine. MD complaint: chest heaviness Pertinent past history: coronary artery disease Onset (ago): hour(s) Timing of current episode: episodic Prior episodes: Yes Onset: during rest Pain location: left chest Pain radiation: none Severity: mild Quality: heaviness Relieving factors: nothing Exacerbating factors: nothing Associated symptoms: Deny abdominal pain, diaphoresis, dyspnea, fever(s), leg edema, nausea, palpitations, sense of impending doom, syncope or vomiting Treatment prior to arrival: none Review of Systems Const: Denies: fever(s) or diaphoresis ENMT: Denies: throat pain, ear or mastoid pain, nasal discharge or nasal congestion Card: Denies: palpitations or syncope Resp: Denies: dyspnea GI: Denies: abdominal pain, nausea or vomiting : Denies: flank pain, difficulty voiding, dysuria, urinary frequency or urinary urgency Skin/Breast: Denies: rash or pruritus REPLACED BY [facility] PFSH: Medical History Arrhythmia (~2011) Paroxysmal, likely atrial fibrillation, identified on eval for possible kidney donor, then not captured again, not been on rate control agents, other treatment or anticoagulation 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 Recommended to have yearly CBC, retic, LDH, CMP Chest pain CHF exacerbation Depression 1 para 1 History of stress test (11/2018) normal myocardia perfusion imaging, EF 66% Hyperlipidemia Hypertension Leukocytosis NSTEMI (non-ST elevated myocardial infarction) Pulmonary edema Surgical History History of tubal ligation Family History Father CAD (coronary artery disease) Social History Smoking and tobacco status: never smoked Alcohol intake: never Lives independently: Yes Household members: spouse Marital status: Number of children: 1 Female Reproductive History: Date of last menstrual period: 08/12/21 Physical Exam Const: COMMON NORMALS: no acute distress GENERAL APPEARANCE: cooperative and comfortable ORIENTATION/CONSCIOUSNESS: Yes awake, Yes oriented to person, Yes oriented to place and Yes oriented to time HENMT: COMMON NORMALS: normocephalic, atraumatic and hearing grossly normal bilaterally HEAD & SCALP: normocephalic and atraumatic Eye: COMMON NORMALS: Equal, round and reactive pupils present, EOMs intact bilaterally, conjunctivae normal and no scleral icterus CONJUNCTIVA: Yes conjunctivae normal PUPIL: Yes Equal, round and reactive pupils present Neck/C-Spine: COMMON NORMALS: full ROM, no lymphadenopathy, supple and no JVD Lymph: LYMPHATIC: no lymphadenopathy noted and no lymphedema noted Resp: COMMON NORMALS: normal respiratory effort, No retractions, No use of accessory muscles and clear to auscultation bilaterally AUSCULTATION: clear to auscultation bilaterally Cardio: COMMON NORMALS: no JVD, regular rate, regular rhythm and No murmurs present (Cardio) RATE: regular rate RHYTHM: regular rhythm GI: COMMON NORMALS: Soft to palpation and No hepatosplenomegaly present AUSCULTATION: Yes normoactive bowel sounds PALPATION: Yes Soft to palpation, No Tenderness to palpation present (GI), No Guarding due to palpation present (GI) and Yes No hepatosplenomegaly present Extremity: COMMON NORMALS: normal to inspection, capillary refill normal, no clubbing, cyanosis or edema, no calf tenderness and no pedal edema Neuro: SENSORIUM/ORIENTATION: Yes oriented to person, Yes oriented to place and Yes oriented to time Skin: COMMON NORMALS: no rashes or lesions noted GENERAL SKIN EXAM: no rashes or lesions noted Course Vital Signs: Vital signs: Vital Signs Temperature 98.6 F 08/27/21 09:34 Pulse Rate 68 08/27/21 13:28 Respiratory Rate 19 H 08/27/21 13:28 Blood Pressure 136/81 08/27/21 13:28 Pulse Oximetry 96 08/27/21 13:28 MDM - Chest Pain MDM Narrative: Medical decision making narrative: For now recommend that she maintain off of the atorvastatin and follow-up with her primary care doctor or oil refiner return if she has further problems. She is anemic however she is not at the point where she will need to be transfused she should have a repeat hemoglobin within the next few days her PCP. Return if she has any further issues. Lab Data: Labs: Lab Results 08/27/21 08/27/21 08/27/21 10:15 10:15 10:15 WBC 7.2 10^3/uL 10^3/ uL (4.0-10.0) RBC 2.86 10^6/uL L 10 ^6/uL (4.1-5.3) Hgb 8.4 g/dL L g/dL (11.5-15.3) Hct 28.8 % L % (37.0-47.0) MCV 100.7 fl H fl (81-99) MCH 29.4 pg pg (28.0-34.0) MCHC 29.2 g/dL L g/dL (30.0-36.0) RDW 18.2 % H % (12.1-15.1) Plt Count 161 10^3/cmm 10^3 /cmm (130-400) MPV 10.5 fL H fL (7.4-10.4) Neut % (Auto) 76.0 % % Lymph % (Auto) 16.0 % % Barber % (Auto) 6.9 % % Eos % (Auto) 0.0 % % Baso % (Auto) 0.3 % % Neut # (Auto) 5.47 10^3/uL 10^3 /uL (1.8-7.7) Lymph # (Auto) 1.2 10^3/uL 10^3/ uL (0.8-4.8) Barber # (Auto) 0.5 10^3/uL 10^3/ uL (0.2-0.9) Eos # (Auto) 0.0 10^3/uL 10^3/ uL (0.0-0.8) Baso # (Auto) 0.0 10^3/uL 10^3/ uL (0.0-0.1) Nucleated RBC % (a uto) 0 % % Nucleated RBCs # 0.0 /100WBC /100W BC Sodium 139 mmol/L mmol/L (136-145) Potassium 4.0 mmol/L mmol/L (3.5-5.1) Chloride 104 mmol/L mmol/L (98-107) Carbon Dioxide 27 mmol/L mmol/L (22-29) Anion Gap 12.0 (5-19) BUN 15 mg/dL mg/dL (8-23) Creatinine 0.7 mg/dL mg/dL (0.5-0.9) GFR Calculation Not Reportable Glucose 106 mg/dL mg/dL (65-115) Calculated Osmolal ity 289 mOsm/kg mOsm/ kg (285-295) Calcium 8.1 mg/dL L mg/dL (8.5-10.5) Total Bilirubin 0.7 mg/dL mg/dL (0.15-1.2) AST 17 U/L U/L (0-32) ALT 19 U/L U/L (0-33) Alkaline Phosphata se 122 IU/L H IU/L (35-105) Creatine Kinase 12 U/L L U/L (26-192) Troponin T Baselin e 59 ng/L H ng/L (0-10) Troponin T 120 Min [place] Troponin T NT-Pro-B Natriuret Pep 2610 pg/mL H pg/m L (0-125) Total Protein 5.7 g/dL L g/dL (6.6-8.7) Albumin 3.5 g/dL g/dL (3.5-5.2) Globulin 2.2 g/dL g/dL (1.3-4.6) 08/27/21 11:59 WBC RBC Hgb Hct MCV MCH MCHC RDW Plt Count MPV Neut % (Auto) Lymph % (Auto) [place] % (Auto) Eos % (Auto) Baso % (Auto) Neut # (Auto) Lymph # (Auto) Barber # (Auto) Eos # (Auto) Baso # (Auto) Nucleated RBC % (a uto) Nucleated RBCs # Sodium Potassium Chloride Carbon Dioxide Anion Gap BUN Creatinine GFR Calculation Glucose Calculated Osmolal ity Calcium Total Bilirubin AST ALT Alkaline Phosphata se Creatine Kinase Troponin T Baselin e Troponin T 120 Min [place] 56.28 ng/L H ng/L (0-10) Delta Troponin T -2.72 ABS# L ABS# (0-10) NT-Pro-B Natriuret Pep Total Protein Albumin Globulin Discharge Plan Discharge Patient Disposition: Home Clinical Impression: Adverse reaction to drug, Anemia, Autoimmune hemolytic anemia, Pleural effusion Condition: Stable Prescriptions: No Action folic acid 1 mg tablet 1 mg PO DAILY RF: 0 fluoxetine 20 mg capsule 20 mg PO DAILY RF: 0 aspirin 81 mg Tablet,Delayed Release (Dr/Ec) 81 mg PO DAILY RF: 0 Eye Multivitamin 7,160 unit- 113 mg-100 unit Tablet 1 tab PO DAILY RF: 0 magnesium citrate 100 mg Capsule 100 mg PO DAILY RF: 0 atorvastatin 40 mg Tablet 40 mg PO BEDTIME Qty: 30 RF: 0 clopidogrel 75 mg Tablet 75 mg PO DAILY Qty: 30 RF: 11 lisinopril 5 mg Tablet 5 mg PO BID Qty: 60 RF: 0 metoprolol tartrate 25 mg Tablet 12.5 mg PO BID@0900,2100 Qty: 30 RF: 0 pantoprazole 40 mg Tablet,Delayed Release (Dr/Ec) 40 mg PO DAILY Qty: 30 RF: 0 Ferrex 150 150 mg iron Capsule 150 mg PO Q48H 30 Days Qty: 16 RF: 3 Decadron 0.5 mg tablet 0.5 mg PO DAILY Qty: 3 RF: 0 Discharge Orders: Discharge ED (Routine); Ordered 08/27/21 Ordered By: Tony Dunlap Referrals: Dax Anthony [Primary Care Provider] - Discharge Diet: Usual diet Discharge Activity: Resume usual activity Patient Instructions: Opioid Safety Activity Restrictions/Additional Instructions: Follow-up with Dr. Galo as previously scheduled. Follow-up with your doctor in the next 2 to 3 days to have repeat hemoglobin done. If the hemoglobin decreases any further you will likely need transfusion. Coding Level of Care Code ED Ginseng Farmer for Mikeg Fwd Exam Comprehensive
[2021-08-27 10:27] LABS: Basophils % 0.3 %; Hematocrit 28.8 % (37.0-47.0); Hemoglobin 8.4 g/dL (11.5-15.3); Lymphocytes # 1.2 10^3/uL (0.8-4.8); Mean Corpuscular HGB Conc 29.2 g/dL (30.0-36.0); Mean Corpuscular Hemoglobin 29.4 pg (28.0-34.0); Mean Corpuscular Volume 100.7 fl (81-99); Mean Platelet Volume 10.5 fL (7.4-10.4); Monocytes # 0.5 10^3/uL (0.2-0.9); Monocytes % 6.9 %; Neutrophils # 5.47 10^3/uL (1.8-7.7); Nucleated Red Blood Cells % 0 %; Platelet Count 161 10^3/cmm (130-400); Red Blood Count 2.86 10^6/uL (4.1-5.3); Red Cell Distribution Width 18.2 % (12.1-15.1); White Blood Count 7.2 10^3/uL (4.0-10.0)
[2021-08-27 11:05] VITALS: BP 140/73; PULSE 63; RESP 16; O2SAT 97
[2021-08-27 11:05] LABS: Troponin(5th) Baseline 59 ng/L (0-10)
[2021-08-27 11:13] LABS: Alanine Aminotransferase 19 U/L (0-33); Albumin Level 3.5 g/dL (3.5-5.2); Alkaline Phosphatase 122 IU/L (35-105); Aspartate Amino Transferase 17 U/L (0-32); Blood Urea Nitrogen 15 mg/dL (8-23); Calcium 8.1 mg/dL (8.5-10.5); Carbon Dioxide 27 mmol/L (22-29); Chloride 104 mmol/L (98-107); Creatine Phosphokinase 12 U/L (26-192); Globulin 2.2 g/dL (1.3-4.6); Glucose 106 mg/dL (65-115); NT Pro B Type Natriuretic Pept 2610 pg/mL (0-125); Osmolality Calculated 289 mOsm/kg (285-295); Sodium 139 mmol/L (136-145); Total Bilirubin 0.7 mg/dL (0.15-1.2); Total Protein 5.7 g/dL (6.6-8.7)
--- NOTE | 2021-08-27 11:42 | ECG_ITS ---
[facility] Test Date: 2021-08-27 Pat Name: Marilou Leiva Department: Room: Gender: Female Carroter: : 1945 Requested By: Tony Coleman Order Number: [id number] Noreen MD: Joshua Lance M.D. Measurements Intervals [place] Rate: 75 P: 51 ME: 142 QRS: 24 QRSD: 107 T: 110 QT: 433 QTc: 485 Interpretive Statements SINUS RHYTHM WITH OCCASIONAL SUPRAVENTRICULAR PREMATURE COMPLEXES INCOMPLETE RIGHT BUNDLE BRANCH BLOCK [90+ ms QRS DURATION, TERMINAL R IN V1/V2, 40+ ms S IN I/aVL/V4/V5/V6] NONSPECIFIC T-WAVE ABNORMALITY Compared to ECG 08/27/2021 09:57:00 No significant changes Electronically Signed On 08-28-2021 17:45:09 MACHINE FASTENER by Joshua Lance M.D. [id number]
[2021-08-27 12:27] LABS: Troponin 5 2HR 56.28 ng/L (0-10)
[2021-08-27 12:28] LABS: Troponin 5 2HR Delta -2.72 ABS# (0-10)
[2021-08-27 13:28] VITALS: BP 136/81; PULSE 68; RESP 19; O2SAT 96
== END 2021-08-27 13:34 | disposition home or self-care (01) ==
PROVIDERS: Emergency Provider Family Medicine; PCP Family Medicine
DX: T50.905A Adverse effect of unspecified drugs, medicaments and biological substances, initial encounter (principal); D59.10 Autoimmune hemolytic anemia, unspecified; J90 Pleural effusion, not elsewhere classified
CPT/HCPCS: 36415; 71045; 80053; 82550; 83880; 84484; 85025; 93005; 99283

== ENCOUNTER 2022-03-17 05:32 | Day surgery (SDC) | payer MEDICARE, BC, SELFPAY ==
[2022-03-13 12:36] VITALS: BMI 31.6
[2022-03-17 06:07] VITALS: BP 137/62; PULSE 47; RESP 18; TEMP 36.3; O2SAT 97
[2022-03-17] MEDS: sodium chloride 0.9% 1,000 ML 30 ML IV (06:16)
--- NOTE | 2022-03-17 06:35 | ANES.PREANE2 ---
Pre-Anesthetic Assessment Height/Weight: Height 1.73 m Weight 94.347 kg Temp Pulse Resp BP Pulse Ox 97.4 F L 47 L 18 137/62 97 03/17/22 06:07 03/17/22 06:07 03/17/22 06:07 03/17/22 06:07 03/17/22 06:07 Preop Diagnosis: history of colon polyps Operation Date: 03/17/22 07:00 Proposed Procedures p colon [place] 66025 DX Z86.010(Not Applicable) - Baljit Barnhart MD Familial anesthetic complications: none Was Beta Joseph taken within 24 hours: Yes Was Clonidine taken within 24 hours: N/A Last intake: Intake Last Liquid Date 03/16/22 Last Liquid Time 19:00 Last Solid Date 03/15/22 Social No alcohol and No tobacco Exam alert, oriented x 3, clear to auscultation bilaterally and regular rate & rhythm Airway Mallampati: Class II Dentition: full Pulmonary None reported CV/HEM Atrial Fibrillation, Coronary Artery Disease, Hypertension and Myocardial Infarction None reported Hepatic None reported GI None reported Metabolic None reported Musc/skel None reported Neuropsych None reported Anesthetic Plan ASA status: 3 Anesthesia: MAC Risk of > 500 ml blood loss (7ml/kg in children): No Medications/Allergies Home Medications Medication Instructions Recorded Confirmed Last Taken Type fluoxetine 20 mg capsule 20 mg PO DAILY 08/05/21 03/17/22 03/16/22 History folic acid 1 mg tablet 1 mg PO DAILY 08/05/21 03/17/22 03/16/22 History magnesium citrate 100 mg capsule 100 mg PO DAILY 08/05/21 03/17/22 03/16/22 History vitamins A,C,G-eqfp-zvmvlc 7,160 1 tab PO DAILY 08/05/21 03/17/22 03/16/22 History unit-113 mg-100 unit tablet (Eye Multivitamin) clopidogrel 75 mg tablet 75 mg PO DAILY #30 tab 08/07/21 03/17/22 03/16/22 Rx pantoprazole 40 mg tablet,delayed 40 mg PO DAILY #30 tab 08/07/21 03/17/22 03/16/22 Rx release apixaban 5 mg tablet (Eliquis) 5 mg PO BID 02/04/22 03/17/22 03/13/22 History sotalol 80 mg tablet 80 mg PO BID 02/04/22 03/17/22 03/17/22 04:30 History furosemide 40 mg tablet 40 mg PO BID 02/17/22 03/17/22 03/16/22 History potassium chloride 20 mEq 20 meq PO DAILY 02/17/22 03/17/22 03/16/22 History tablet,extended release Allergies Allergy/AdvReac Type Severity Reaction Status Date / Time Tetracyclines Allergy Unknown Verified 03/17/22 06:13 Current Medications Generic Name Dose Route Start Last Admin Trade Name Valentina PRN Reason Stop Dose Admin Sodium Chloride 1,000 mls @ 30 mls/hr 03/17/22 06:00 03/17/22 06:16 Sodium Chloride 0.9% IV 03/18/22 05:59 30 mls/hr .Q24H MAYITO Administration PFS Anesthesia Medical History (Updated 02/17/22 @ 16:10 by Baljit Barnhart MD) Arrhythmia (~2011) Paroxysmal, likely atrial fibrillation, identified on eval for possible kidney donor, then not captured again, not been on rate control agents, other treatment or anticoagulation 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 Recommended to have yearly CBC, retic, LDH, CMP Chest pain CHF exacerbation Depression 1 para 1 History of stress test (11/2018) normal myocardia perfusion imaging, EF 66% Hyperlipidemia Hypertension Leukocytosis NSTEMI (non-ST elevated myocardial infarction) Pulmonary edema Surgical History History of tubal ligation Family History Father CAD (coronary artery disease) Social History Smoking and tobacco status: never smoked Alcohol intake: never Lives independently: Yes Household members: spouse Marital status: Number of children: 1 Female Reproductive History Date of last menstrual period: 08/12/21 Data Anesthesia Cardiac Studies: Echocardiogram 08/12/21
--- NOTE | 2022-03-17 07:19 | W.PM.OPSFHP ---
Same Day Surgery H&P Indication for Procedure/HPI DATE OF PROCEDURE: March 17, 2022 CHIEF COMPLAINT/INDICATIONFOR SURGICAL PROCEDURE: Screening PREOP DIAGNOSIS: history of colon polyps PLANNED PROCEDURE: Operation Date: 03/17/22 07:00 Proposed Procedures p colon screening or cpt 19074 DX Z86.010(Not Applicable) - Baljit Barnhart MD Medications/Allergies* Home Medications Medication Instructions Recorded Confirmed Type fluoxetine 20 mg capsule 20 mg PO DAILY 08/05/21 03/17/22 History folic acid 1 mg tablet 1 mg PO DAILY 08/05/21 03/17/22 History magnesium citrate 100 mg capsule 100 mg PO DAILY 08/05/21 03/17/22 History vitamins A,C,S-lqwe-mvniug 7,160 1 tab PO DAILY 08/05/21 03/17/22 History unit-113 mg-100 unit tablet (Eye Multivitamin) apixaban 5 mg tablet (Eliquis) 5 mg PO BID 02/04/22 03/17/22 History sotalol 80 mg tablet 80 mg PO BID 02/04/22 03/17/22 History furosemide 40 mg tablet 40 mg PO BID 02/17/22 03/17/22 History potassium chloride 20 mEq 20 meq PO DAILY 02/17/22 03/17/22 History tablet,extended release Allergies/Adverse Reactions Allergy/AdvReac Type Severity Reaction Status Date / Time Tetracyclines Allergy Unknown Verified 03/17/22 06:13 Current Medications: Generic Name Dose Route Start Last Admin Trade Name Freq PRN Reason Stop Dose Admin Sodium Chloride 1,000 mls @ 30 mls/hr 03/17/22 06:00 03/17/22 06:16 Sodium Chloride 0.9% IV 03/18/22 05:59 30 mls/hr .Q24H MAYITO Administration Pertinent History/Comorbid Conditions* Medical History (Updated 02/17/22 @ 16:10 by Baljit Barnhart MD) Arrhythmia (~2011) Paroxysmal, likely atrial fibrillation, identified on eval for possible kidney donor, then not captured again, not been on rate control agents, other treatment or anticoagulation 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 Recommended to have yearly CBC, retic, LDH, CMP Chest pain CHF exacerbation Depression 1 para 1 History of stress test (11/2018) normal myocardia perfusion imaging, EF 66% Hyperlipidemia Hypertension Leukocytosis NSTEMI (non-ST elevated myocardial infarction) Pulmonary edema Surgical History (Updated 08/05/21 @ 02:01 by Aleida Zhao MD) History of tubal ligation Family History (Updated 08/05/21 @ 02:01 by Aleida Zhao MD) CAD (coronary artery disease) Father Social History Smoking and tobacco status: never smoked Alcohol intake: never Lives independently: Yes Household members: spouse Marital status: Number of children: 1 Pertinent Exam Findings alert, oriented x 3, clear to auscultation bilaterally, regular rate & rhythm, operative site marked and procedure specific exam findings Recommendations Surgery/Procedure today Coding Level of Care Code Acute Interventional Radiology Technologist for Tiera Merino
[2022-03-17 07:32] VITALS: PULSE 57; RESP 16; TEMP 36.2; O2SAT 95
[2022-03-17 07:47] VITALS: BP 109/53; PULSE 50; RESP 18; O2SAT 100
--- NOTE | 2022-03-17 13:49 | ANE.PACU2 ---
Inpatient post-anesthesia follow up: Airway intact: Yes Vital signs: Temperature 97.2 F Pulse Rate 50 Respiratory Rate 18 Blood Pressure 109/53 Pulse Oximetry 100 Oxygen Delivery Me thod Room Air Oxygen Flow Rate Fraction of Inspir ed Oxygen Hydration adequate: Yes Nausea and vomiting: No Pain level: 1 Mental status: Baseline
== END 2022-03-17 08:00 | disposition home or self-care (01) ==
PROVIDERS: PCP Family Medicine; Visit Provider Internal Medicine
PROC: 0DJD8ZZ Inspection of Lower Intestinal Tract, Via Natural or Artificial Opening Endoscopic (ICD-10-PCS; CPT 45378; principal; 2022-03-17 07:00)
DX: Z12.11 Encounter for screening for malignant neoplasm of colon (principal); Z86.010 Personal history of colon polyps; I48.91 Unspecified atrial fibrillation; I25.10 Atherosclerotic heart disease of native coronary artery without angina pectoris; I10 Essential (primary) hypertension; I25.2 Old myocardial infarction; E78.5 Hyperlipidemia, unspecified
CPT/HCPCS: 45378; J2704; J7030

== ENCOUNTER 2025-01-20 09:07 | Emergency (ER) | payer MEDICARE, BC, SELFPAY ==
[2025-01-20 09:24] VITALS: BP 149/73; PULSE 57; RESP 17; TEMP 36.6; O2SAT 97; BMI 34.3
--- NOTE | 2025-01-20 09:53 | CT_ITS ---
WS: [id number] CT HEAD NONCONTRAST HISTORY: trip/fall/lac TECHNIQUE: Contiguous axial imaging performed through the brain. Bone and soft tissue windows. Sagittal and coronal reformats reviewed. All CT scans at [facility] use at least one of these dose optimization techniques: automated exposure control; mA and/or kV adjustment per patient size (includes targeted exams where dose is matched to clinical indication); or iterative reconstruction. DLP: 1071.20 mGy.cm COMPARISON: None available. No acute intracranial hemorrhage, midline shift or mass effect. Minimal atrophy and small vessel disease. No prior infarct. Ventricles: Normal size with no hydrocephalus. No inferior displacement of the cerebellar tonsils. Sella turcica is negative. Paranasal sinuses: As visualized are clear. Mastoid air cells: Well pneumatized. Calvarium and scalp: No skull fracture. Soft tissue contusion with laceration centered over the LEFT orbit. No foreign body or debris within the laceration. CT/CT head wo con* [id number] IMPRESSION: 1. No acute intracranial hemorrhage or edema. 2. No significant atrophy or prior infarct. 3. LEFT frontal soft tissue contusion with skin laceration.
--- NOTE | 2025-01-20 09:53 | W.ED.WOUNDLC ---
HPI - Wound/Laceration General: Chief Complaint: Wound/Laceration Stated Complaint: fall, lac above left eye Time Seen by Provider: 01/20/25 09:47 Source: patient and family Mode of arrival: ambulatory Limitations: no limitations History of Present Illness: Patient is a nice 79 yo female here for a facial laceration that she sustained just [employer] after accidentally tripping on falling on asphalt. States she was at a yard sale. Has a laceration near her left eyebrow. Last tetanus unknown. She is on anti-coagulation. Denies headache. No neck or back pain. No other injuries noted. Onset (ago): hour(s) Location: face Place: outdoors Patient tetanus UTD: No Context: accidental Associated symptoms: Reports no associated symptoms; Denies nausea, syncope or vomiting Related Data Home Medications ?Medication ?Instructions ?Recorded ?Confirmed fluoxetine 20 mg capsule 20 mg PO DAILY 08/05/21 01/20/25 folic acid 1 mg tablet 1 mg PO DAILY 08/05/21 01/20/25 apixaban 5 mg tablet (Eliquis) 5 mg PO BID 02/04/22 01/20/25 sotalol 80 mg tablet 80 mg PO BID 02/04/22 01/20/25 furosemide 40 mg tablet 40 mg PO DAILY 02/17/22 01/20/25 evolocumab 140 mg/mL subcutaneous 140 mg SUBCUT Q14D 01/20/25 01/20/25 pen injector (Repatha SureClick) potassium chloride 10 mEq 10 meq PO DAILY 01/20/25 01/20/25 capsule,extended release Allergies Allergy/AdvReac Type Severity Reaction Status Date / Time Tetracyclines Allergy Unknown Verified 03/17/22 06:13 Review of Systems Eyes: Denies: change in vision, blurry vision, floaters or seeing flashes Card: Denies: palpitations, lightheadedness, syncope or pre-syncope Resp: Denies: dyspnea GI: Denies: nausea or vomiting Musc: Denies: neck pain, back pain, extremity pain or joint pain Skin/Breast: Reports: other (facial laceration) Neuro: Denies: headache(s), numbness in extremities, weakness in extremities or sensory changes PFS ED PFSH: Medical History Pulmonary edema Chest pain Leukocytosis CHF exacerbation 1 para 1 NSTEMI (non-ST elevated myocardial infarction) Hypertension Depression Arrhythmia (~2011) Paroxysmal, likely atrial fibrillation, identified on eval for possible kidney donor, then not captured again, not been on rate control agents, other treatment or anticoagulation History of stress test (11/2018) normal myocardia perfusion imaging, EF 66% 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 Recommended to have yearly CBC, retic, LDH, CMP Hyperlipidemia Surgical History History of tubal ligation Family History Father CAD (coronary artery disease) Social History Smoking and tobacco/nicotine status: never used tobacco/nicotine Alcohol intake: never Substance/Drug Use: never Lives independently: Yes Household members: spouse Marital status: Number of children: 1 Physical Exam Const: COMMON NORMALS: no acute distress, average body habitus, patient oriented x3, no limitations, healthy appearing, alert and well nourished GENERAL APPEARANCE: cooperative ORIENTATION/CONSCIOUSNESS: Yes awake, Yes oriented to person, Yes oriented to place and Yes oriented to time HENMT: COMMON NORMALS: normocephalic, atraumatic and Normal external nose present HEAD & SCALP: normal to inspection, normocephalic and atraumatic FACE & SINUS: laceration; no crepitus, no ecchymosis, no edema and no Facial tenderness on exam of face and sinuses FACE & SINUS IMAGES:  1. laceration; no bony orbital tenderness; full painless EOMs NOSE: Normal external nose present MOUTH: other (no intraoral injuries) Eye: COMMON NORMALS: Equal, round and reactive pupils present and EOMs intact bilaterally GENERAL EYE: appearance normal, both eyes and all related structures and normal light reflex PUPIL: Yes Equal, round and reactive pupils present DIRECT OPHTHALMOSCOPY: Yes normal light reflex Neck/C-Spine: COMMON NORMALS: full ROM CERVICAL SPINE: No Cervical spine tenderness Neuro: COMMON NORMALS: patient oriented x3 SENSORIUM/ORIENTATION: Yes alert, Yes oriented to person, Yes oriented to place and Yes oriented to time Course Vital Signs: Vital signs: Vital Signs Temperature 97.9 F 01/20/25 09:24 Pulse Rate 57 L 01/20/25 09:24 Respiratory Rate 17 01/20/25 09:24 Blood Pressure 149/73 01/20/25 09:24 Pulse Oximetry 97 01/20/25 09:24 Oxygen Delivery Me thod Room Air 01/20/25 09:24 MDM - Wound/Laceration Medical Decision Making CT head negative. Wound was copiously irrigated and repaired as documented. Wound care/infection precautions discussed. Differential Diagnosis Likely laceration Medical Records I reviewed the patient's medical records. Lab Data Radiology Impressions Head CT 01/20/25 09:53 IMPRESSION: 1. No acute intracranial hemorrhage or edema. 2. No significant atrophy or prior infarct. 3. LEFT frontal soft tissue contusion with skin laceration. All radiology interpretation(s) finalized by discharge Discharge Plan Discharge Patient Disposition: Home Clinical Impression: Facial laceration Qualifiers: Encounter type: initial encounter Qualified Code(s): S01.81XA - Laceration without foreign body of other part of head, initial encounter Condition: Stable Prescriptions: No Action Eliquis 5 mg tablet 5 mg PO BID sotalol 80 mg tablet 80 mg PO BID furosemide 40 mg tablet 40 mg PO DAILY folic acid 1 mg tablet 1 mg PO DAILY fluoxetine 20 mg capsule 20 mg PO DAILY potassium chloride 10 mEq capsule, extended release 10 meq PO DAILY Repatha SureClick 140 mg/mL pen injector 140 mg SUBCUT Q14D Discharge Orders: Discharge ED (Routine); Ordered 01/20/25 Ordered By: Ritika Daniels Referrals: Dax Anthony [Primary Care Provider] - Patient Instructions: Facial Laceration (ED) Activity Restrictions/Additional Instructions: Keep wound/laceration clean with warm soap and water twice daily. Monitor for signs of infection such as redness, swelling, increased pain, or drainage. Please seek medical re-evaluation if these occur. If you received sutures today these will need to be removed (unless you were told by the provider that they are absorbable). The provider should have discussed with you the length of time until removal-5 to 7 DAYS. Print Language: Albanian Coding Level of Care Code ED Bulk Driver for Tiera Merino
[2025-01-20] MEDS: tetanus-dipt-pertussis 0.5 mL SDV IM (10:52)
== END 2025-01-20 10:59 | disposition home or self-care (01) ==
PROVIDERS: Emergency Provider Physician Assistant; PCP Family Medicine
DX: S01.81XA Laceration without foreign body of other part of head, initial encounter (principal); Z79.01 Long term (current) use of anticoagulants; W01.0XXA Fall on same level from slipping, tripping and stumbling without subsequent striking against object, initial encounter; E78.5 Hyperlipidemia, unspecified; I50.9 Heart failure, unspecified; Z23 Encounter for immunization
CPT/HCPCS: 12013; 70450; 90471; 90715; 99284

== ENCOUNTER → 2025-09-07 15:44 | Outpatient (BNVA) | payer MEDICARE, BC, SELFPAY | PROVIDERS: PCP Family Medicine; Visit Provider Internal Medicine Cardiovascular Disease | DX: R07.9 Chest pain, unspecified (principal); I49.8 Other specified cardiac arrhythmias; I45.10 Unspecified right bundle-branch block | CPT/HCPCS: 93005 ==